=== PATIENT | female | born 1960 | race African-American/Black ===

== ENCOUNTER 2017-07-25 16:50 | Inpatient (IN) | payer MEDICARE, OTHER ==
[~2017-07-25] VITALS: Ht 160 cm; Wt 136.0 kg
[2017-07-25 22:20] LABS: Basophils # (auto) 0 uL; Basophils % (auto) 0.4 % (0.0-2.0); Eosinophils # (auto) 0.2 uL; Eosinophils % (auto) 2.5 % (0.0-7.0); Hematocrit 35.4 % (36.0-46.0); Hemoglobin 11.5 g/dL (12.2-16.2); Lymphocytes # (auto) 1.2 uL; Lymphocytes % (auto) 16.6 % (10.0-50.0); Mean Corpuscular Hemoglobin 31.3 pg (28.0-32.0); Mean Corpuscular Hgb Conc. 32.6 g/dL (32.0-36.0); Mean Corpuscular Volume 96.2 fL (80.0-100.0); Monocytes # (auto) 0.6 uL; Monocytes % (auto) 8.2 % (0.0-12.0); Neutrophils # (auto) 5.2 uL; Neutrophils % (auto) 72.3 % (37.0-80.0); Platelet Count (auto) 166 10^3/uL (140-450); Red Blood Cells 3.68 10^6/uL (4.0-5.20); Red Cell Distribution Width 15.4 % (11.8-14.3); White Blood Cell 7.2 10^3/uL (4.4-10.8)
[2017-07-25 22:46] LABS: Albumin 3.7 g/dL (3.4-5.0); BUN/Creatinine Ratio 5.8; Bilirubin, Total 0.2 mg/dL (0.2-1.0); Total Protein 8.7 g/dL (6.4-8.2)
[2017-07-26] VITALS (7 sets, daily range): BP systolic 96–135; BP diastolic 44–81
[2017-07-26] MEDS ORDERED: CALCIUM GLUC 4.65meq/50ml D5AE 50 ML IV ONE
[2017-07-26] MEDS ORDERED: SODIUM BICARBONATE 8.4 % INJ 50ML VIAL IV ONE
[2017-07-26] MEDS ORDERED: DEXTROSE (50%) 50ML SYRG IV ONE
[2017-07-26] MEDS ORDERED: SODIUM POLYSTYRENE SULF 15GM/60ML SUSP PO ONE
[2017-07-26] MEDS ORDERED: InsuLIN REG 1unit/0.01ml Soln (100units/ml) IV ONE
[2017-07-26] MEDS ORDERED: ACETAMINOPHEN 325 MG TAB PO PRN (02:15)
[2017-07-26] MEDS ORDERED: TEMAZEPAM 15 MG CAP PO PRN (02:15)
[2017-07-26] MEDS ORDERED: ONDANSETRON HCL 4 MG/2 ML VIAL IV PRN (02:15)
[2017-07-26] MEDS ORDERED: NITROGLYCERIN 0.4 MG SL TAB SL PRN (02:15)
[2017-07-26] MEDS ORDERED: cloNIDine HCL 0.1 MG TAB PO PRN (02:15)
[2017-07-26] MEDS ORDERED: DEXTROSE (50%) 50ML SYRG IV PRN (02:15)
[2017-07-26] MEDS ORDERED: MORPHINE SULFATE 8mg/ml INJ SDV IV PRN (02:15)
[2017-07-26] MEDS: HYDROcodone-ACET 5/325MG TAB PO PRN (05:25)
[2017-07-26] MEDS: InsuLIN REG 1unit/0.01ml Soln (100units/ml) SC SCH ×3 (05:30→18:00)
[2017-07-26] MEDS: ACCU-CHEK COMFORT CURVE STRIP VI SCH ×3 (05:30→19:38)
[2017-07-26] MEDS ORDERED: CEPH500C PO (05:58)
[2017-07-26] MEDS: HEPARIN SODIUM (PORCINE) 5000 UNITS/ML 1ML VIAL SC SCH ×2 (10:03→21:14)
[2017-07-26] MEDS: PANTOPRAZOLE 40 MG TAB PO SCH (10:03)
[2017-07-26] MEDS ORDERED: SODIUM CHL 0.9% 1000 ML BAG XX ONE (14:15)
[2017-07-26] MEDS ORDERED: ERGOCALCIFEROL 50,000 UNIT(1.25MG) CAP PO SCH (15:00)
[2017-07-27] MEDS: ACCU-CHEK COMFORT CURVE STRIP VI SCH ×2 (00:12→06:07)
[2017-07-27 05:48] VITALS: BP 89/49
[2017-07-27] MEDS: InsuLIN REG 1unit/0.01ml Soln (100units/ml) SC SCH ×2 (06:00)
[2017-07-27 07:48] LABS: Basophils # (auto) 0 uL; Basophils % (auto) 0.5 % (0.0-2.0); Eosinophils # (auto) 0.1 uL; Eosinophils % (auto) 2.1 % (0.0-7.0); Hematocrit 29.6 % (36.0-46.0); Hemoglobin 9.5 g/dL (12.2-16.2); Lymphocytes # (auto) 0.8 uL; Lymphocytes % (auto) 20.8 % (10.0-50.0); Mean Corpuscular Hemoglobin 31.3 pg (28.0-32.0); Mean Corpuscular Hgb Conc. 32.2 g/dL (32.0-36.0); Mean Corpuscular Volume 97.3 fL (80.0-100.0); Monocytes # (auto) 0.3 uL; Monocytes % (auto) 8.9 % (0.0-12.0); Neutrophils # (auto) 2.5 uL; Neutrophils % (auto) 67.7 % (37.0-80.0); Platelet Count (auto) 123 10^3/uL (140-450); Red Blood Cells 3.04 10^6/uL (4.0-5.20); Red Cell Distribution Width 15.3 % (11.8-14.3); White Blood Cell 3.7 10^3/uL (4.4-10.8)
[2017-07-27 08:00] VITALS: BP 91/54
[2017-07-27 08:11] LABS: Albumin 2.6 g/dL (3.4-5.0); BUN/Creatinine Ratio 5.4; Bilirubin, Total 0.2 mg/dL (0.2-1.0); Calcium 9.1 mg/dL (8.5-10.1); Total Protein 6.3 g/dL (6.4-8.2)
[2017-07-27] MEDS: PANTOPRAZOLE 40 MG TAB PO SCH (10:51)
[2017-07-27] MEDS: MULTIPLE VITAMIN TAB PO SCH (10:51)
[2017-07-27] MEDS: HEPARIN SODIUM (PORCINE) 5000 UNITS/ML 1ML VIAL SC SCH ×2 (10:52→22:00)
[2017-07-27] MEDS ORDERED: MIDODRINE HCL 10 MG TAB PO ONE (11:00)
[2017-07-27 11:44] LABS: Hepatitis B Surface Antibody Negative
[2017-07-27 12:00] VITALS: BP 107/59
[2017-07-27] MEDS: SEVELAMER 800 MG TAB PO SCH ×2 (12:19→17:32)
[2017-07-27 12:51] LABS: Hepatitis B Surface Antigen Negative (Negative)
[2017-07-27 17:00] VITALS: BP 113/61
[2017-07-27 20:07] VITALS: BP 121/71
[2017-07-27 22:00] VITALS: BP 121/71
[2017-07-28 05:00] VITALS: BP 128/70
[2017-07-28 07:08] LABS: BUN/Creatinine Ratio 5.7
[2017-07-28] MEDS: SEVELAMER 800 MG TAB PO SCH ×3 (08:28→18:08)
[2017-07-28 09:00] VITALS: BP 110/64
[2017-07-28] MEDS: PANTOPRAZOLE 40 MG TAB PO SCH (09:34)
[2017-07-28] MEDS: MULTIPLE VITAMIN TAB PO SCH (09:34)
[2017-07-28] MEDS: HEPARIN SODIUM (PORCINE) 5000 UNITS/ML 1ML VIAL SC SCH ×2 (09:37→22:30)
[2017-07-28 13:00] VITALS: BP 119/64
[2017-07-28 17:00] VITALS: BP 114/69
[2017-07-28] MEDS: HYDROcodone-ACET 5/325MG TAB PO PRN (18:20)
[2017-07-28 22:00] VITALS: BP 126/68
[2017-07-29] VITALS (7 sets, daily range): BP systolic 107–132; BP diastolic 48–94
[2017-07-29] MEDS: SEVELAMER 800 MG TAB PO SCH ×3 (07:55→18:00)
[2017-07-29] MEDS: MULTIPLE VITAMIN TAB PO SCH (10:07)
[2017-07-29] MEDS: PANTOPRAZOLE 40 MG TAB PO SCH (10:07)
[2017-07-29] MEDS: HEPARIN SODIUM (PORCINE) 5000 UNITS/ML 1ML VIAL SC SCH ×2 (10:13→21:15)
[2017-07-29] MEDS ORDERED: EPOETIN ALFA 10,000 UNIT/1 ML VIAL IV ONE (12:45)
[2017-07-30 05:29] VITALS: BP 123/70
[2017-07-30 08:00] VITALS: BP 126/87
[2017-07-30 09:00] VITALS: BP 63/28
[2017-07-30] MEDS: MULTIPLE VITAMIN TAB PO SCH (10:10)
[2017-07-30] MEDS: SEVELAMER 800 MG TAB PO SCH ×3 (10:10→18:00)
[2017-07-30] MEDS: PANTOPRAZOLE 40 MG TAB PO SCH (10:10)
[2017-07-30] MEDS: HEPARIN SODIUM (PORCINE) 5000 UNITS/ML 1ML VIAL SC SCH (10:15)
[2017-07-30 13:00] VITALS: BP 125/75
[2017-07-30 17:46] VITALS: BP 140/70
== END 2017-07-30 18:45 | disposition home health service (06) | DRG 640 ==
LOC: ER 16:50 → EDBD 16:50 → TELE-CENTR 16:51
PROVIDERS: ADMIT Nurse Practitioner; ATTEND Family Medicine
PROC: 5A1D70Z Performance of Urinary Filtration, Intermittent, Less than 6 Hours Per Day (ICD-10-PCS; principal; 2017-07-26)
PROC: 5A1D70Z Performance of Urinary Filtration, Intermittent, Less than 6 Hours Per Day (ICD-10-PCS; 2017-07-27)
PROC: 5A1D70Z Performance of Urinary Filtration, Intermittent, Less than 6 Hours Per Day (ICD-10-PCS; 2017-07-29)
DX: E87.70 Fluid overload, unspecified (principal); N18.6 End stage renal disease; I13.2 Hypertensive heart and chronic kidney disease with heart failure and with stage 5 chronic kidney disease, or end stage renal disease; N17.9 Acute kidney failure, unspecified; E11.22 Type 2 diabetes mellitus with diabetic chronic kidney disease; B19.10 Unspecified viral hepatitis B without hepatic coma; E66.01 Morbid (severe) obesity due to excess calories; E83.39 Other disorders of phosphorus metabolism; Z68.43 Body mass index [BMI] 50.0-59.9, adult; K76.0 Fatty (change of) liver, not elsewhere classified; D63.8 Anemia in other chronic diseases classified elsewhere; E87.5 Hyperkalemia; I50.9 Heart failure, unspecified; J44.9 Chronic obstructive pulmonary disease, unspecified; Z91.15 Patient's noncompliance with renal dialysis; Z99.2 Dependence on renal dialysis
CPT/HCPCS: 36415; 71045; 80048; 80053; 82962; 84100; 84132; 85025; 86706; 87081; 87340; 90935; 96374; 96375; J0610; J0885; J1642; J1815

== ENCOUNTER → 2017-08-18 | Outpatient (CLI) | payer MEDICARE, OTHER ==
[~2017-08-18] MED LIST: CEPH500C PO
[2017-08-18 10:21] LABS: Basophils # (auto) 0 uL; Basophils % (auto) 0.6 % (0.0-2.0); Eosinophils # (auto) 0.1 uL; Eosinophils % (auto) 1.7 % (0.0-7.0); Hematocrit 32.4 % (36.0-46.0); Hemoglobin 10.4 g/dL (12.2-16.2); Lymphocytes # (auto) 1.1 uL; Lymphocytes % (auto) 14.7 % (10.0-50.0); Mean Corpuscular Hemoglobin 31.4 pg (28.0-32.0); Mean Corpuscular Hgb Conc. 32.2 g/dL (32.0-36.0); Mean Corpuscular Volume 97.7 fL (80.0-100.0); Monocytes # (auto) 0.4 uL; Monocytes % (auto) 5.9 % (0.0-12.0); Neutrophils # (auto) 5.6 uL; Neutrophils % (auto) 77.1 % (37.0-80.0); Nucleated Red Blood Cells % 0.1 %; Platelet Count (auto) 241 10^3/uL (140-450); Red Blood Cells 3.32 10^6/uL (4.0-5.20); Red Cell Distribution Width 14.9 % (11.8-14.3); White Blood Cell 7.2 10^3/uL (4.4-10.8)
[2017-08-18 10:50] LABS: Albumin 3.6 g/dL (3.4-5.0); BUN/Creatinine Ratio 7.5; Bilirubin, Total 0.2 mg/dL (0.2-1.0); Calcium 10.3 mg/dL (8.5-10.1); Total Protein 8.6 g/dL (6.4-8.2)
[2017-08-18 10:56] LABS: Potassium 5.6 mmol/L (3.5-5.1)
== END | disposition home or self-care (01) ==
LOC: LAB 09:25
PROVIDERS: ATTEND Nurse Practitioner
DX: E78.5 Hyperlipidemia, unspecified (principal); I12.0 Hypertensive chronic kidney disease with stage 5 chronic kidney disease or end stage renal disease; E11.22 Type 2 diabetes mellitus with diabetic chronic kidney disease; N18.6 End stage renal disease
CPT/HCPCS: 36415; 80053; 80061; 82306; 83036; 84443; 85025

== ENCOUNTER 2017-08-31 02:42 | Inpatient (IN) | payer MEDICARE, OTHER ==
[~2017-08-31] VITALS: Ht 175.3 cm; Wt 144.8 kg
[2017-08-31] MEDS ORDERED: ASPirin 81 mg TAB PO ONE (04:15)
[2017-08-31 04:44] LABS: Basophils # (auto) 0 uL; Basophils % (auto) 0.4 % (0.0-2.0); Eosinophils # (auto) 0.1 uL; Eosinophils % (auto) 1.7 % (0.0-7.0); Hematocrit 26.9 % (36.0-46.0); Lymphocytes % (auto) 13.8 % (10.0-50.0); Mean Corpuscular Hemoglobin 32.1 pg (28.0-32.0); Mean Corpuscular Hgb Conc. 33.4 g/dL (32.0-36.0); Mean Corpuscular Volume 96.1 fL (80.0-100.0); Monocytes # (auto) 0.6 uL; Neutrophils # (auto) 5.2 uL; Neutrophils % (auto) 75.1 % (37.0-80.0); Platelet Count (auto) 174 10^3/uL (140-450); Red Cell Distribution Width 14.7 % (11.8-14.3); White Blood Cell 6.9 10^3/uL (4.4-10.8)
[2017-08-31 05:10] LABS: INR 0.96 (0.9-1.15); Partial Thromboplastin Time 27.8 sec (23.78-33.04); Prothrombin Time 10.3 sec (9.27-12.13)
[2017-08-31 05:57] LABS: Alkaline Phosphatase 226 U/L (45-117); Anion Gap 11 (5-15); BUN/Creatinine Ratio 7.2; Carbon Dioxide 26 mmol/L (21-32); Chloride 102 mmol/L (98-107); GFR African American 4 mL/min; GFR Non-African American 3 mL/min; Glucose 94 mg/dL (74-106); Potassium 5.9 mmol/L (3.5-5.1); Sodium 139 mmol/L (136-145)
[2017-08-31 05:58] LABS: Alanine Aminotransferase 13 U/L (13-56); Albumin 3.1 g/dL (3.4-5.0); Aspartate Aminotransferase 8 U/L (15-37); Bilirubin, Total 0.2 mg/dL (0.2-1.0); Calcium 9.1 mg/dL (8.5-10.1); Total Protein 7.2 g/dL (6.4-8.2)
[2017-08-31 06:00] LABS: Blood Urea Nitrogen 91 mg/dL (7-18)
[2017-08-31] MEDS ORDERED: DOCUSATE SOD 100 MG CAP PO PRN (09:00)
[2017-08-31] MEDS ORDERED: MORPHINE SULF INJ 2 MG/ML SYRINGE 1ML IV PRN (09:00)
[2017-08-31] MEDS ORDERED: TEMAZEPAM 15 MG CAP PO PRN (09:00)
[2017-08-31] MEDS ORDERED: DEXTROSE (50%) 50ML SYRG IV ONE (09:00)
[2017-08-31] MEDS ORDERED: SODIUM POLYSTYRENE SULF 15GM/60ML SUSP PO ONE (09:00)
[2017-08-31] MEDS ORDERED: cloNIDine HCL 0.1 MG TAB PO PRN (09:00)
[2017-08-31] MEDS ORDERED: SODIUM BICARBONATE 8.4 % INJ 50ML VIAL IV ONE (09:00)
[2017-08-31] MEDS ORDERED: ONDANSETRON HCL 4 MG/2 ML VIAL IV PRN (09:00)
[2017-08-31] MEDS ORDERED: NITROGLYCERIN 0.4 MG SL TAB SL PRN (09:00)
[2017-08-31] MEDS ORDERED: CALCIUM GLUC 4.65meq/50ml D5AE 50 ML IV ONE (09:00)
[2017-08-31] MEDS ORDERED: ACETAMINOPHEN 325 MG TAB PO PRN (09:00)
[2017-08-31] MEDS ORDERED: InsuLIN REG 1unit/0.01ml Soln (100units/ml) IV ONE (09:00)
[2017-08-31 09:11] VITALS: BP 104/54
[2017-08-31] MEDS ORDERED: DEXTROSE (50%) 50ML SYRG IV PRN (09:30)
[2017-08-31] MEDS: MULTIPLE VITAMIN TAB PO SCH (09:56)
[2017-08-31] MEDS: ACCU-CHEK COMFORT CURVE STRIP VI SCH ×3 (11:52→22:00)
[2017-08-31] MEDS: SEVELAMER 800 MG TAB PO SCH ×2 (11:53→18:00)
[2017-08-31] MEDS ORDERED: Ensure Enlive Strawberry 8oz Bottle PO SCH (12:00)
[2017-08-31] MEDS: InsuLIN REG 1unit/0.01ml Soln (100units/ml) SC SCH ×3 (12:00→22:00)
[2017-08-31] MEDS: ALBUTEROL SULF 2.5 MG/0.5ML(0.5%) NEB SOLN NEB SCH ×2 (12:05→19:01)
[2017-08-31] MEDS: Glucerna Carbsteady SHAKE Vanilla 8oz PO SCH ×2 (12:30→19:08)
[2017-08-31] MEDS: cloNIDine HCL 0.1 MG TAB PO SCH ×2 (14:00→21:43)
[2017-08-31] MEDS: SODIUM CHLOR 0.9% PF (SALINE LOCK) 10ML VIAL/SYR IV SCH ×2 (15:38→22:00)
[2017-08-31] MEDS ORDERED: ALBU1AER4 IN (16:26)
[2017-08-31] MEDS ORDERED: CLON0.2D6 TD (16:26)
[2017-08-31] MEDS ORDERED: SEVE800T8 PO (16:26)
[2017-08-31] MEDS ORDERED: HYDR-4683 PO (16:26)
[2017-08-31] MEDS ORDERED: EPOETIN ALFA 3,000 UNIT/1 ML VIAL IV ONE (18:00)
[2017-08-31] MEDS ORDERED: EPOETIN ALFA 2,000 UNIT/1 ML VIAL IV ONE (18:00)
[2017-08-31] MEDS ORDERED: SODIUM CHL 0.9% 1000 ML BAG XX ONE (18:00)
[2017-08-31 21:13] VITALS: BP 145/76
[2017-08-31] MEDS: diphenhdrAMINE HCL 25 MG CAP PO PRN (21:42)
[2017-08-31] MEDS: HYDROcodone-ACET 5/325MG TAB PO PRN (21:43)
[2017-08-31 22:00] VITALS: BP 139/72
[2017-08-31 22:44] LABS: Urine Amorphous Crystal FEW /hpf (None Seen); Urine Bacteria MANY /hpf (None Seen); Urine Blood 1+ /uL (Negative); Urine Specific Gravity 1.008 (1.001-1.035); Urine WBC 8 /hpf (0 - 5)
[2017-09-01] MEDS: ALBUTEROL SULF 2.5 MG/0.5ML(0.5%) NEB SOLN NEB SCH ×4 (00:39→18:00)
[2017-09-01 05:00] VITALS: BP 111/61
[2017-09-01] MEDS: SODIUM CHLOR 0.9% PF (SALINE LOCK) 10ML VIAL/SYR IV SCH ×3 (05:51→14:50)
[2017-09-01] MEDS: ACCU-CHEK COMFORT CURVE STRIP VI SCH ×4 (05:52→21:57)
[2017-09-01] MEDS: cloNIDine HCL 0.1 MG TAB PO SCH ×3 (05:52→21:43)
[2017-09-01] MEDS: InsuLIN REG 1unit/0.01ml Soln (100units/ml) SC SCH ×4 (06:13→21:58)
[2017-09-01 07:52] LABS: Basophils # (auto) 0 uL; Eosinophils # (auto) 0.1 uL; Hematocrit 23.5 % (36.0-46.0); Lymphocytes # (auto) 0.8 uL; Monocytes # (auto) 0.5 uL; Neutrophils # (auto) 3.1 uL; White Blood Cell 4.5 10^3/uL (4.4-10.8)
[2017-09-01 07:54] LABS: Basophils % (auto) 0.3 % (0.0-2.0); Eosinophils % (auto) 2.5 % (0.0-7.0); Lymphocytes % (auto) 16.9 % (10.0-50.0); Mean Corpuscular Hemoglobin 30.9 pg (28.0-32.0); Mean Corpuscular Hgb Conc. 32.3 g/dL (32.0-36.0); Mean Corpuscular Volume 95.7 fL (80.0-100.0); Monocytes % (auto) 11.5 % (0.0-12.0); Neutrophils % (auto) 68.8 % (37.0-80.0); Red Cell Distribution Width 14.4 % (11.8-14.3)
[2017-09-01 07:57] LABS: Hemoglobin 7.7 g/dL (12.2-16.2); Platelet Count (auto) 141 10^3/uL (140-450); Red Blood Cells 2.46 10^6/uL (4.0-5.20)
[2017-09-01] MEDS: Glucerna Carbsteady SHAKE Vanilla 8oz PO SCH ×3 (07:58→17:16)
[2017-09-01 08:01] VITALS: BP 100/59
[2017-09-01 08:24] LABS: Albumin 2.5 g/dL (3.4-5.0); Bilirubin, Total 0.4 mg/dL (0.2-1.0); Total Protein 6.2 g/dL (6.4-8.2)
[2017-09-01 08:48] VITALS: BP 100/59
[2017-09-01] MEDS: MULTIPLE VITAMIN TAB PO SCH (08:48)
[2017-09-01] MEDS: SEVELAMER 800 MG TAB PO SCH ×3 (08:48→18:00)
[2017-09-01] MEDS: HYDROcodone-ACET 5/325MG TAB PO PRN ×3 (08:48→21:44)
[2017-09-01] MEDS ORDERED: EPOETIN ALFA 3,000 UNIT/1 ML VIAL IV ONE (11:30)
[2017-09-01] MEDS ORDERED: EPOETIN ALFA 2,000 UNIT/1 ML VIAL IV ONE (11:30)
[2017-09-01 12:06] VITALS: BP 118/73
[2017-09-01] MEDS: ENOXAPARIN SOD 30 MG/0.3 ML SYRINGE SC SCH (14:51)
[2017-09-01 16:50] VITALS: BP 116/63
[2017-09-01] MEDS: diphenhdrAMINE HCL 25 MG CAP PO PRN (21:44)
[2017-09-01 22:00] VITALS: BP 124/66
[2017-09-02] MEDS: ALBUTEROL SULF 2.5 MG/0.5ML(0.5%) NEB SOLN NEB SCH ×3 (00:41→11:05)
[2017-09-02 05:00] VITALS: BP 111/60
[2017-09-02] MEDS: SODIUM CHLOR 0.9% PF (SALINE LOCK) 10ML VIAL/SYR IV SCH (05:45)
[2017-09-02] MEDS: cloNIDine HCL 0.1 MG TAB PO SCH (06:31)
[2017-09-02] MEDS: ACCU-CHEK COMFORT CURVE STRIP VI SCH ×2 (06:50→11:30)
[2017-09-02] MEDS: InsuLIN REG 1unit/0.01ml Soln (100units/ml) SC SCH ×2 (06:55→11:30)
[2017-09-02] MEDS: Glucerna Carbsteady SHAKE Vanilla 8oz PO SCH ×2 (08:00→12:00)
[2017-09-02] MEDS: SEVELAMER 800 MG TAB PO SCH ×2 (08:42→12:57)
[2017-09-02 08:46] VITALS: BP 119/67
[2017-09-02] MEDS ORDERED: ENOXAPARIN SOD 40 MG/0.4 ML SYRINGE SC SCH (10:00)
[2017-09-02 12:56] VITALS: BP 126/71
[2017-09-02] MEDS: ENOXAPARIN SOD 30 MG/0.3 ML SYRINGE SC SCH (12:56)
[2017-09-02] MEDS: MULTIPLE VITAMIN TAB PO SCH (12:56)
[2017-09-02 14:32] VITALS: BP 119/67
== END 2017-09-02 15:15 | disposition home or self-care (01) | DRG 291 ==
LOC: EDBD 02:42 → ER 02:48 → TELE 02:49 → TELE-CENTR 10:57
PROVIDERS: ADMIT Internal Medicine; ATTEND Family Medicine
PROC: 5A1D70Z Performance of Urinary Filtration, Intermittent, Less than 6 Hours Per Day (ICD-10-PCS; 2017-08-31)
PROC: 5A1D70Z Performance of Urinary Filtration, Intermittent, Less than 6 Hours Per Day (ICD-10-PCS; principal; 2017-09-01)
DX: I13.2 Hypertensive heart and chronic kidney disease with heart failure and with stage 5 chronic kidney disease, or end stage renal disease (principal); N18.6 End stage renal disease; I50.43 Acute on chronic combined systolic (congestive) and diastolic (congestive) heart failure; E44.0 Moderate protein-calorie malnutrition; Z68.42 Body mass index [BMI] 45.0-49.9, adult; J44.1 Chronic obstructive pulmonary disease with (acute) exacerbation; N04.9 Nephrotic syndrome with unspecified morphologic changes; E87.5 Hyperkalemia; E83.41 Hypermagnesemia; D63.8 Anemia in other chronic diseases classified elsewhere; E11.22 Type 2 diabetes mellitus with diabetic chronic kidney disease; I08.0 Rheumatic disorders of both mitral and aortic valves; E66.01 Morbid (severe) obesity due to excess calories; I70.0 Atherosclerosis of aorta; R06.03 Acute respiratory distress; Z79.4 Long term (current) use of insulin; Z99.2 Dependence on renal dialysis; Z91.15 Patient's noncompliance with renal dialysis
CPT/HCPCS: 36415; 71045; 80053; 81001; 82962; 83036; 83735; 83880; 84443; 84484; 85025; 85379; 85610; 85730; 90935; 93005; 93306; 93970; 94640; 96365; 96375; 97110; 97163; J0610; J1642; J1815; Q4081

== ENCOUNTER → 2017-09-29 | Outpatient (CLI) | payer MEDICARE, OTHER ==
[~2017-09-29] MED LIST changes: +ALBU1AER4 IN; +CLON0.2D6 TD; +HYDR-4683 PO; +SEVE800T8 PO
== END | disposition home or self-care (01) ==
LOC: LAB 09:52
PROVIDERS: ATTEND Nurse Practitioner
DX: R10.811 Right upper quadrant abdominal tenderness (principal); I12.9 Hypertensive chronic kidney disease with stage 1 through stage 4 chronic kidney disease, or unspecified chronic kidney disease; E11.22 Type 2 diabetes mellitus with diabetic chronic kidney disease; N18.4 Chronic kidney disease, stage 4 (severe); Z82.61 Family history of arthritis
CPT/HCPCS: 86225; 86235

== ENCOUNTER 2017-10-12 16:17 | Inpatient (IN) | payer MEDICARE, OTHER ==
[~2017-10-12] VITALS: Ht 175.3 cm; Wt 128.9 kg
[2017-10-12 18:41] LABS: Basophils # (auto) 0 uL; Hemoglobin 8.4 g/dL (12.2-16.2); Lymphocytes # (auto) 1.4 uL; White Blood Cell 5.7 10^3/uL (4.4-10.8)
[2017-10-12 18:48] LABS: Basophils % (auto) 0.4 % (0.0-2.0); Eosinophils # (auto) 0.3 uL; Hematocrit 25.6 % (36.0-46.0); Lymphocytes % (auto) 23.8 % (10.0-50.0); Mean Corpuscular Hemoglobin 31.7 pg (28.0-32.0); Mean Corpuscular Hgb Conc. 32.9 g/dL (32.0-36.0); Mean Corpuscular Volume 96.5 fL (80.0-100.0); Monocytes # (auto) 0.6 uL; Monocytes % (auto) 10.7 % (0.0-12.0); Neutrophils # (auto) 3.4 uL; Neutrophils % (auto) 60.1 % (37.0-80.0); Platelet Count (auto) 175 10^3/uL (140-450); Red Blood Cells 2.65 10^6/uL (4.0-5.20); Red Cell Distribution Width 14.9 % (11.8-14.3)
[2017-10-12 19:00] LABS: Alanine Aminotransferase 19 U/L (13-56); Albumin 3.3 g/dL (3.4-5.0); Anion Gap 12 (5-15); Calcium 8.9 mg/dL (8.5-10.1); Carbon Dioxide 26 mmol/L (21-32); Chloride 99 mmol/L (98-107); Glucose 67 mg/dL (74-106); Sodium 137 mmol/L (136-145)
[2017-10-12 19:07] LABS: Alkaline Phosphatase 270 U/L (45-117); Aspartate Aminotransferase 13 U/L (15-37); BUN/Creatinine Ratio 5.9; Bilirubin, Total 0.3 mg/dL (0.2-1.0); GFR African American 4 mL/min; GFR Non-African American 3 mL/min; Total Protein 7.6 g/dL (6.4-8.2)
[2017-10-12 19:11] LABS: Blood Urea Nitrogen 81 mg/dL (7-18); Potassium 6.9 mmol/L (3.5-5.1)
[2017-10-12] MEDS ORDERED: SODIUM POLYSTYRENE SULF 15GM/60ML SUSP PO ONE (20:30)
[2017-10-12] MEDS ORDERED: SODIUM BICARBONATE 8.4 % INJ 50ML VIAL IV ONE (20:30)
[2017-10-12] MEDS ORDERED: InsuLIN REG 1unit/0.01ml Soln (100units/ml) IV ONE (20:30)
[2017-10-12] MEDS ORDERED: HYDROcodone-ACET 5/325MG TAB PO ONE (20:30)
[2017-10-12] MEDS ORDERED: DEXTROSE (50%) 50ML SYRG IV ONE (20:30)
[2017-10-12] MEDS ORDERED: CALCIUM GLUC 4.65meq/50ml D5AE 50 ML IV ONE (20:30)
[2017-10-12] MEDS ORDERED: ACETAMINOPHEN 500 MG TAB PO PRN (21:30)
[2017-10-12] MEDS ORDERED: NITROGLYCERIN 0.4 MG SL TAB SL PRN (21:30)
[2017-10-12] MEDS ORDERED: MORPHINE SULF INJ 2 MG/ML SYRINGE 1ML IV PRN (21:30)
[2017-10-12] MEDS ORDERED: ONDANSETRON HCL 4 MG/2 ML VIAL IV PRN (21:30)
[2017-10-12] MEDS ORDERED: ALBUTEROL SULF 2.5 MG/0.5ML(0.5%) NEB SOLN NEB PRN (21:30)
[2017-10-12 22:21] VITALS: BP 128/68
[2017-10-12] MEDS ORDERED: PROMETHAZINE HCL 25 MG/ML 1ML ONE (23:10)
[2017-10-12] MEDS ORDERED: HYDROmorphone HCL 2 MG/ML VL ONE (23:10)
[2017-10-12] MEDS ORDERED: HYDROmorphone HCL 2 MG/ML VL IV ONE (23:15)
[2017-10-12] MEDS ORDERED: PROMETHAZINE HCL 25 MG/ML 1ML IM ONE (23:15)
[2017-10-13] VITALS (8 sets, daily range): BP systolic 97–132; BP diastolic 55–73
[2017-10-13] MEDS: cloNIDine HCL 0.1 MG TAB PO SCH ×3 (05:30→21:03)
[2017-10-13] MEDS: SEVELAMER 800 MG TAB PO SCH ×3 (08:00→18:16)
[2017-10-13 08:22] LABS: BUN/Creatinine Ratio 5.9; Calcium 8.9 mg/dL (8.5-10.1)
[2017-10-13 08:30] LABS: Potassium 7.3 mmol/L (3.5-5.1)
[2017-10-13] MEDS ORDERED: ALBUTEROL SULF 2.5 MG/0.5ML(0.5%) NEB SOLN NEB ONE (08:45)
[2017-10-13] MEDS ORDERED: InsuLIN REG 1unit/0.01ml Soln (100units/ml) IV ONE (08:45)
[2017-10-13] MEDS ORDERED: DEXTROSE (50%) 50ML SYRG IV ONE (08:45)
[2017-10-13] MEDS ORDERED: EPOETIN ALFA 10,000 UNIT/1 ML VIAL IV ONE (10:15)
[2017-10-13] MEDS ORDERED: SODIUM CHL 0.9% 1000 ML BAG XX ONE (10:15)
[2017-10-13] MEDS ORDERED: MIDODRINE HCL 10 MG TAB PO ONE (10:15)
[2017-10-13 14:21] LABS: Hemoglobin 7.9 g/dL (12.2-16.2); Lymphocytes # (auto) 0.9 uL; Lymphocytes % (auto) 18.4 % (10.0-50.0); Monocytes # (auto) 0.5 uL; Neutrophils # (auto) 3.4 uL; Nucleated Red Blood Cells % 0.1 %; Red Cell Distribution Width 14.7 % (11.8-14.3)
[2017-10-13 14:22] LABS: Basophils # (auto) 0.1 uL; Basophils % (auto) 1.1 % (0.0-2.0); Eosinophils # (auto) 0.2 uL; Eosinophils % (auto) 3.2 % (0.0-7.0); Hematocrit 24.1 % (36.0-46.0); Mean Corpuscular Hemoglobin 31.2 pg (28.0-32.0); Mean Corpuscular Hgb Conc. 32.6 g/dL (32.0-36.0); Monocytes % (auto) 9.3 % (0.0-12.0); Platelet Count (auto) 166 10^3/uL (140-450); Red Blood Cells 2.51 10^6/uL (4.0-5.20); White Blood Cell 4.9 10^3/uL (4.4-10.8)
[2017-10-13] MEDS: HYDROcodone-ACET 5/325MG TAB PO PRN (21:03)
[2017-10-14 04:32] VITALS: BP 119/60
[2017-10-14] MEDS: cloNIDine HCL 0.1 MG TAB PO SCH ×3 (05:28→21:36)
[2017-10-14 07:45] LABS: Basophils # (auto) 0 uL; Eosinophils # (auto) 0.2 uL; Eosinophils % (auto) 4.6 % (0.0-7.0); Hemoglobin 8.4 g/dL (12.2-16.2); Monocytes # (auto) 0.5 uL; Neutrophils # (auto) 3.2 uL; White Blood Cell 4.7 10^3/uL (4.4-10.8)
[2017-10-14 07:47] LABS: Basophils % (auto) 0.5 % (0.0-2.0); Hematocrit 25.5 % (36.0-46.0); Lymphocytes # (auto) 0.8 uL; Lymphocytes % (auto) 16.2 % (10.0-50.0); Mean Corpuscular Hemoglobin 31.7 pg (28.0-32.0); Mean Corpuscular Hgb Conc. 32.9 g/dL (32.0-36.0); Mean Corpuscular Volume 96.2 fL (80.0-100.0); Monocytes % (auto) 10.5 % (0.0-12.0); Neutrophils % (auto) 68.2 % (37.0-80.0); Platelet Count (auto) 157 10^3/uL (140-450); Red Blood Cells 2.65 10^6/uL (4.0-5.20)
[2017-10-14 08:00] VITALS: BP 104/52
[2017-10-14] MEDS: SEVELAMER 800 MG TAB PO SCH ×3 (08:00→18:00)
[2017-10-14 08:10] LABS: BUN/Creatinine Ratio 5.3; Calcium 8.7 mg/dL (8.5-10.1); Magnesium 3.1 mg/dL (1.6-2.6)
[2017-10-14 08:14] LABS: Potassium 6.2 mmol/L (3.5-5.1)
[2017-10-14] MEDS ORDERED: SODIUM CHL 0.9% 1000 ML BAG XX ONE (08:30)
[2017-10-14 09:39] VITALS: BP 104/52
[2017-10-14] MEDS ORDERED: ALBUTEROL SULF 2.5 MG/0.5ML(0.5%) NEB SOLN ONE (10:59)
[2017-10-14] MEDS ORDERED: ALBUTEROL SULF 2.5 MG/0.5ML(0.5%) NEB SOLN NEB ONE (11:00)
[2017-10-14] MEDS ORDERED: DEXTROSE (50%) 50ML SYRG IV ONE (11:00)
[2017-10-14] MEDS ORDERED: InsuLIN REG 1unit/0.01ml Soln (100units/ml) IV ONE (11:00)
[2017-10-14 12:30] VITALS: BP 124/66
[2017-10-14 17:23] VITALS: BP 115/56
[2017-10-14] MEDS: HYDROcodone-ACET 5/325MG TAB PO PRN (20:20)
[2017-10-14 21:39] VITALS: BP 130/70
[2017-10-15 05:00] VITALS: BP 116/55
[2017-10-15] MEDS: cloNIDine HCL 0.1 MG TAB PO SCH ×2 (05:43→14:00)
[2017-10-15 07:28] LABS: Hemoglobin 8.4 g/dL (12.2-16.2)
[2017-10-15 07:29] LABS: Hematocrit 25.4 % (36.0-46.0)
[2017-10-15 07:41] LABS: BUN/Creatinine Ratio 4.4; Calcium 9.3 mg/dL (8.5-10.1); Magnesium 2.8 mg/dL (1.6-2.6); Potassium 4.7 mmol/L (3.5-5.1)
[2017-10-15 08:00] VITALS: BP 116/55
[2017-10-15] MEDS: SEVELAMER 800 MG TAB PO SCH ×2 (08:07→12:00)
[2017-10-15 09:05] VITALS: BP 111/58
[2017-10-15 14:28] VITALS: BP 112/59
== END 2017-10-15 14:30 | disposition home health service (06) | DRG 291 ==
LOC: EDBD 16:17 → ER 16:24 → TELE 16:25 → TELE-WESTW 23:40
PROVIDERS: ADMIT Nurse Practitioner Family; ATTEND Internal Medicine
PROC: 5A1D70Z Performance of Urinary Filtration, Intermittent, Less than 6 Hours Per Day (ICD-10-PCS; principal; 2017-10-13)
PROC: 5A1D70Z Performance of Urinary Filtration, Intermittent, Less than 6 Hours Per Day (ICD-10-PCS; 2017-10-14)
DX: I13.2 Hypertensive heart and chronic kidney disease with heart failure and with stage 5 chronic kidney disease, or end stage renal disease (principal); I50.43 Acute on chronic combined systolic (congestive) and diastolic (congestive) heart failure; N18.6 End stage renal disease; Z68.41 Body mass index [BMI] 40.0-44.9, adult; E87.5 Hyperkalemia; D63.8 Anemia in other chronic diseases classified elsewhere; E11.22 Type 2 diabetes mellitus with diabetic chronic kidney disease; E66.01 Morbid (severe) obesity due to excess calories; J44.9 Chronic obstructive pulmonary disease, unspecified; Z82.49 Family history of ischemic heart disease and other diseases of the circulatory system; Z99.2 Dependence on renal dialysis; Z91.15 Patient's noncompliance with renal dialysis; J45.909 Unspecified asthma, uncomplicated
CPT/HCPCS: 36415; 71045; 80048; 80053; 83735; 83880; 84100; 84132; 84484; 85014; 85018; 85025; 87081; 90935; 93005; 94640; 94644; 96374; 96375; J0610; J0885; J1642; J1815

== ENCOUNTER → 2017-11-10 | Outpatient (CLI) | payer MEDICARE, OTHER | END | disposition home or self-care (01) | LOC: RT 08:24 | PROVIDERS: ATTEND Internal Medicine Pulmonary Disease | DX: R06.02 Shortness of breath (principal) | CPT/HCPCS: 94060 ==

== ENCOUNTER 2018-05-05 15:59 | Emergency (ER) | payer MEDICARE, OTHER ==
[~2018-05-05] VITALS: Ht 152.4 cm; Wt 136.1 kg
[2018-05-05 17:06] LABS: Basophils # (auto) 0 uL; Basophils % (auto) 0.4 % (0.0-2.0); Eosinophils # (auto) 0.1 uL; Eosinophils % (auto) 0.8 % (0.0-7.0); Hematocrit 34.1 % (36.0-46.0); Hemoglobin 11.1 g/dL (12.2-16.2); Lymphocytes # (auto) 1.5 uL; Lymphocytes % (auto) 16.1 % (10.0-50.0); Mean Corpuscular Hemoglobin 31.4 pg (28.0-32.0); Mean Corpuscular Hgb Conc. 32.7 g/dL (32.0-36.0); Mean Corpuscular Volume 96.1 fL (80.0-100.0); Monocytes % (auto) 10.3 % (0.0-12.0); Neutrophils # (auto) 6.9 uL; Neutrophils % (auto) 72.4 % (37.0-80.0); Platelet Count (auto) 137 10^3/uL (140-450); Red Blood Cells 3.55 10^6/uL (4.0-5.20); Red Cell Distribution Width 15.1 % (11.8-14.3); White Blood Cell 9.5 10^3/uL (4.4-10.8)
[2018-05-05 17:12] LABS: Anion Gap 7 (5-15); Blood Urea Nitrogen 70 mg/dL (7-18); Calcium 7.2 mg/dL (8.5-10.1); Carbon Dioxide 24 mmol/L (21-32); Chloride 100 mmol/L (98-107); Glucose 94 mg/dL (74-106); INR 0.94 (0.9-1.15); Prothrombin Time 10.1 sec (9.27-12.13); Sodium 131 mmol/L (136-145)
[2018-05-05 17:15] LABS: Alanine Aminotransferase < 6 U/L (13-56); Alkaline Phosphatase 243 U/L (45-117); Aspartate Aminotransferase 11 U/L (15-37); BUN/Creatinine Ratio 7.2; Bilirubin, Total 0.3 mg/dL (0.2-1.0); GFR African American 5 mL/min; GFR Non-African American 4 mL/min
[2018-05-05 17:25] LABS: Potassium 6.3 mmol/L (3.5-5.1)
[2018-05-05] MEDS ORDERED: CALCIUM GLUC 4.65meq/50ml D5AE 50 ML IV ONE (18:15)
[2018-05-05] MEDS ORDERED: DEXTROSE (50%) 50ML SYRG IV ONE (18:15)
[2018-05-05] MEDS ORDERED: InsuLIN REG 1unit/0.01ml Soln (100units/ml) IV ONE (18:15)
[2018-05-06 01:30] VITALS: BP 116/68
== END 2018-05-06 01:44 | disposition short-term general hospital (02) ==
LOC: ER 15:59 → EDUNIT# 15:59 → EDBD 15:59 → ER 05-06 01:44
DX: R22.9 Localized swelling, mass and lump, unspecified (principal); E11.22 Type 2 diabetes mellitus with diabetic chronic kidney disease; I13.2 Hypertensive heart and chronic kidney disease with heart failure and with stage 5 chronic kidney disease, or end stage renal disease; I50.9 Heart failure, unspecified; N18.6 End stage renal disease; D63.1 Anemia in chronic kidney disease; J44.9 Chronic obstructive pulmonary disease, unspecified; E87.5 Hyperkalemia; Z99.2 Dependence on renal dialysis; Z79.4 Long term (current) use of insulin
CPT/HCPCS: 36415; 80053; 83735; 83880; 84132; 84484; 85025; 85610; 85730; 93005; 93971; 94761; 96365; 96375; 99285; J0610; J1815; J7042

== ENCOUNTER 2020-04-13 19:00 | Inpatient (IN) | payer MEDICARE, MEDICAID ==
[~2020-04-13] VITALS: Ht 152.4 cm; Wt 139.4 kg
[~2020-04-13 19:00] MED LIST changes: -HYDR-4683 PO; +HYDR-4833 PO
[2020-04-13] MEDS ORDERED: ONDANSETRON ODT 4 MG TAB PO STA (22:01)
[2020-04-13] MEDS ORDERED: HYDROcodone-ACET 5/325MG TAB PO STA (22:01)
[2020-04-14 00:26] LABS: Basophils # (auto) 0 10 ^3/uL (0-0.2); Eosinophils # (auto) 0 10 ^3/uL (0-0.8); Eosinophils % (auto) 0.2 % (0.0-7.0); Hematocrit 30.8 % (36.0-46.0); Hemoglobin 9.9 g/dL (12.2-16.2); Lymphocytes # (auto) 0.3 10 ^3/uL (0.4-5.4); Lymphocytes % (auto) 4.5 % (10.0-50.0); Mean Corpuscular Hemoglobin 29.8 pg (28.0-32.0); Mean Corpuscular Hgb Conc. 32.1 g/dL (32.0-36.0); Mean Corpuscular Volume 92.8 fL (80.0-100.0); Monocytes # (auto) 0.1 10 ^3/uL (0-1.3); Monocytes % (auto) 0.9 % (0.0-12.0); Neutrophils # (auto) 5.8 10 ^3/uL (1.6-8.6); Neutrophils % (auto) 94.4 % (37.0-80.0); Nucleated Red Blood Cells % 0.1 %; Platelet Count (auto) 152 10^3/uL (140-450); Red Blood Cells 3.32 10^6/uL (4.0-5.20); Red Cell Distribution Width 15.8 % (11.8-14.3); White Blood Cell 6.1 10^3/uL (4.4-10.8)
[2020-04-14 00:38] LABS: Lactic Acid w/Reflex 2.4 mmol/L (0.4-2.0)
[2020-04-14 00:39] LABS: Albumin 3.1 g/dL (3.4-5.0); BUN/Creatinine Ratio 3.2; Calcium 8.8 mg/dL (8.5-10.1); INR 1.03 (0.9-1.15); Partial Thromboplastin Time 28.6 sec (23.0-31.2); Potassium 3.5 mmol/L (3.5-5.1)
[2020-04-14 00:42] LABS: Bilirubin, Total 1.1 mg/dL (0.2-1.0)
[2020-04-14] MEDS ORDERED: PIPERACILLIN-TAZOB 3.375GM 100 ML IV ONE (02:15)
[2020-04-14] MEDS ORDERED: VANCOMYCIN 1GM/250ML 250 ML IV ONE (02:15)
[2020-04-14] MEDS ORDERED: ACETAMINOPHEN 325 MG TAB PO PRN (06:30)
[2020-04-14] MEDS ORDERED: NITROGLYCERIN 0.4 MG SL TAB SL PRN (06:30)
[2020-04-14] MEDS ORDERED: DEXTROSE (50%) 50ML SYRG IV PRN (06:30)
[2020-04-14] MEDS ORDERED: DOCUSATE SOD 100 MG CAP PO PRN (06:30)
[2020-04-14] MEDS: InsuLIN REG 1unit/0.01ml Soln (100units/ml) SC SCH ×4 (07:00→20:30)
[2020-04-14] MEDS: ACCU-CHEK COMFORT CURVE STRIP VI SCH ×4 (07:22→20:29)
[2020-04-14] MEDS ORDERED: PIPERACILLIN-TAZOB 0.75 GM in D5W 5% 50 ML IV SCH (07:30)
[2020-04-14] MEDS: SEVELAMER 800 MG TAB PO SCH ×3 (07:43→18:00)
[2020-04-14] MEDS: FAMOTIDINE (10MG/ML) 2ML VL IV SCH (07:43)
[2020-04-14] MEDS: B-COMPLEX W/ C & FOLIC ACID(NEPHROVITE TAB) PO SCH (07:44)
[2020-04-14] MEDS: ASCORBIC ACID 500 MG TAB PO SCH ×2 (07:44→20:48)
[2020-04-14] MEDS: PIPERACILLIN-TAZOB 2.25GM 50 ML IV SCH ×2 (07:44→20:52)
[2020-04-14] MEDS: ZINC SULFATE 220mg CAP or TAB PO SCH (07:44)
[2020-04-14] MEDS ORDERED: MULTIPLE VITAMIN TAB PO SCH (10:00)
[2020-04-14] MEDS ORDERED: NOREPINEPHRINE 8 MG/250ML KIT 250 ML IV ONE (11:43)
[2020-04-14] MEDS: NOREPINEPHRINE 8 MG/250ML KIT 250 ML IV SCH (12:00)
[2020-04-14] MEDS: HYDROcodone-ACET 5/325MG TAB PO PRN ×2 (12:05→16:59)
[2020-04-14] MEDS ORDERED: diphenhdrAMINE HCL 50 MG/1 ML VL ONE (12:35)
[2020-04-14] MEDS: SODIUM CHLOR 0.9% PF (SALINE LOCK) 10ML VIAL/SYR IV SCH ×2 (13:21→20:29)
[2020-04-14 13:28] LABS: Hematocrit 27.3 % (36.0-46.0); Hemoglobin 8.8 g/dL (12.2-16.2); Mean Corpuscular Hemoglobin 29.9 pg (28.0-32.0); Mean Corpuscular Volume 93.3 fL (80.0-100.0); Platelet Count (auto) 137 10^3/uL (140-450); Red Blood Cells 2.93 10^6/uL (4.0-5.20); Red Cell Distribution Width 15.9 % (11.8-14.3); White Blood Cell 19.5 10^3/uL (4.4-10.8)
[2020-04-14 13:32] LABS: Basophils % (manual) 0 (0.0-2.0); Blast Cells 0; Eosinophils % (manual) 0 (0-7); Promyelocytes % 0; Reactive Lymphocytes 0
[2020-04-14 13:38] LABS: Albumin 2.6 g/dL (3.4-5.0); Calcium 8.2 mg/dL (8.5-10.1); Potassium 4.3 mmol/L (3.5-5.1)
[2020-04-14 13:40] LABS: BUN/Creatinine Ratio 4.2
[2020-04-14 13:42] LABS: Total Protein 6.5 g/dL (6.4-8.2)
[2020-04-14 14:08] LABS: Band Neutrophils % (manual) 21; Lymphocytes % (manual) 3 (10.0-50.0); Metamyelocytes % 2; Monocytes % (manual) 4 (0-12); Myelocytes % 3
[2020-04-14] MEDS ORDERED: PHENYLEPHRINE IV 250 ML IV ONE (18:15)
[2020-04-14] MEDS ORDERED: ONDANSETRON HCL 4 MG/2 ML VIAL ONE (18:38)
[2020-04-14] MEDS: PHENYLEPHRINE IV 250 ML IV SCH (18:52)
[2020-04-14] MEDS ORDERED: SODIUM CHLORIDE 0.9% 1,000 ML IV ONE (19:15)
[2020-04-15] MEDS: PHENYLEPHRINE IV 250 ML IV SCH ×3 (00:34→19:45)
[2020-04-15] MEDS: MORPHINE SULF INJ 2 MG/ML SYRINGE 1ML IV PRN ×2 (01:31→07:48)
[2020-04-15] MEDS: SODIUM CHLOR 0.9% PF (SALINE LOCK) 10ML VIAL/SYR IV SCH ×3 (03:43→22:00)
[2020-04-15] MEDS: HYDROcodone-ACET 5/325MG TAB PO PRN (04:52)
[2020-04-15] MEDS: ONDANSETRON HCL 4 MG/2 ML VIAL IV PRN ×2 (05:15→05:18)
[2020-04-15] MEDS: InsuLIN REG 1unit/0.01ml Soln (100units/ml) SC SCH ×4 (05:19→22:00)
[2020-04-15] MEDS: ACCU-CHEK COMFORT CURVE STRIP VI SCH ×4 (05:19→22:01)
[2020-04-15 07:38] LABS: Albumin 2.4 g/dL (3.4-5.0); Anion Gap 10 (5-15); BUN/Creatinine Ratio 4.9; Blood Urea Nitrogen 32 mg/dL (7-18); Calcium 8.3 mg/dL (8.5-10.1); Carbon Dioxide 26 mmol/L (21-32); Chloride 102 mmol/L (98-107); GFR African American 8 mL/min; GFR Non-African American 7 mL/min; Glucose 84 mg/dL (74-106); Potassium 4.5 mmol/L (3.5-5.1); Sodium 138 mmol/L (136-145)
[2020-04-15 07:43] LABS: Alanine Aminotransferase 42 U/L (13-56); Alkaline Phosphatase 307 U/L (45-117); Aspartate Aminotransferase 58 U/L (15-37); Bilirubin, Total 0.9 mg/dL (0.2-1.0); Total Protein 6.6 g/dL (6.4-8.2)
[2020-04-15 07:58] LABS: Basophils # (auto) 0.1 10 ^3/uL (0-0.2); Basophils % (auto) 0.3 % (0.0-2.0); Eosinophils # (auto) 0 10 ^3/uL (0-0.8); Eosinophils % (auto) 0.2 % (0.0-7.0); Hematocrit 26.9 % (36.0-46.0); Hemoglobin 8.7 g/dL (12.2-16.2); Lymphocytes # (auto) 1.7 10 ^3/uL (0.4-5.4); Lymphocytes % (auto) 7.5 % (10.0-50.0); Mean Corpuscular Hemoglobin 30.1 pg (28.0-32.0); Mean Corpuscular Hgb Conc. 32.4 g/dL (32.0-36.0); Mean Corpuscular Volume 93.2 fL (80.0-100.0); Monocytes # (auto) 2.2 10 ^3/uL (0-1.3); Neutrophils # (auto) 18.3 10 ^3/uL (1.6-8.6); Platelet Count (auto) 155 10^3/uL (140-450); Red Blood Cells 2.89 10^6/uL (4.0-5.20); Red Cell Distribution Width 15.4 % (11.8-14.3); White Blood Cell 22.3 10^3/uL (4.4-10.8)
[2020-04-15] MEDS: SEVELAMER 800 MG TAB PO SCH ×3 (08:45→18:20)
[2020-04-15] MEDS: PIPERACILLIN-TAZOB 2.25GM 50 ML IV SCH ×2 (10:00→22:35)
[2020-04-15] MEDS ORDERED: levoFLOXacin 250MG 50 ML IV SCH (11:45)
[2020-04-15] MEDS: NOREPINEPHRINE 8 MG/250ML KIT 250 ML IV SCH (12:00)
[2020-04-15] MEDS: ZINC SULFATE 220mg CAP or TAB PO SCH (12:42)
[2020-04-15] MEDS: ASCORBIC ACID 500 MG TAB PO SCH ×2 (12:42→22:35)
[2020-04-15] MEDS: B-COMPLEX W/ C & FOLIC ACID(NEPHROVITE TAB) PO SCH (13:03)
[2020-04-16] MEDS: NOREPINEPHRINE 8 MG/250ML KIT 250 ML IV SCH
[2020-04-16] MEDS: PHENYLEPHRINE IV 250 ML IV SCH ×2 (04:05→12:20)
[2020-04-16] MEDS: SODIUM CHLOR 0.9% PF (SALINE LOCK) 10ML VIAL/SYR IV SCH ×3 (04:32→21:16)
[2020-04-16] MEDS: HYDROcodone-ACET 5/325MG TAB PO PRN ×2 (05:09→09:24)
[2020-04-16] MEDS: InsuLIN REG 1unit/0.01ml Soln (100units/ml) SC SCH ×4 (06:49→21:21)
[2020-04-16] MEDS: ACCU-CHEK COMFORT CURVE STRIP VI SCH ×4 (06:49→21:21)
[2020-04-16] MEDS: SEVELAMER 800 MG TAB PO SCH ×3 (08:00→18:00)
[2020-04-16 08:50] LABS: Basophils # (auto) 0.1 10 ^3/uL (0-0.2); Basophils % (auto) 0.3 % (0.0-2.0); Eosinophils # (auto) 0.2 10 ^3/uL (0-0.8); Eosinophils % (auto) 0.7 % (0.0-7.0); Monocytes # (auto) 1.6 10 ^3/uL (0-1.3); Red Cell Distribution Width 15.8 % (11.8-14.3)
[2020-04-16 08:51] LABS: Hematocrit 25.3 % (36.0-46.0); Hemoglobin 8.1 g/dL (12.2-16.2); Lymphocytes # (auto) 2.4 10 ^3/uL (0.4-5.4); Lymphocytes % (auto) 10.5 % (10.0-50.0); Mean Corpuscular Hemoglobin 29.4 pg (28.0-32.0); Mean Corpuscular Hgb Conc. 31.9 g/dL (32.0-36.0); Mean Corpuscular Volume 92.4 fL (80.0-100.0); Monocytes % (auto) 6.7 % (0.0-12.0); Neutrophils % (auto) 81.8 % (37.0-80.0); Platelet Count (auto) 166 10^3/uL (140-450); Red Blood Cells 2.74 10^6/uL (4.0-5.20); White Blood Cell 23.3 10^3/uL (4.4-10.8)
[2020-04-16] MEDS: ZINC SULFATE 220mg CAP or TAB PO SCH (09:03)
[2020-04-16] MEDS: ASCORBIC ACID 500 MG TAB PO SCH ×2 (09:03→21:16)
[2020-04-16] MEDS: FAMOTIDINE (10MG/ML) 2ML VL IV SCH (09:03)
[2020-04-16] MEDS: B-COMPLEX W/ C & FOLIC ACID(NEPHROVITE TAB) PO SCH (09:03)
[2020-04-16 09:05] LABS: Potassium 4.9 mmol/L (3.5-5.1)
[2020-04-16 09:10] LABS: Albumin 2.2 g/dL (3.4-5.0); BUN/Creatinine Ratio 6.1; Bilirubin, Total 0.4 mg/dL (0.2-1.0); Total Protein 6.5 g/dL (6.4-8.2)
[2020-04-16] MEDS: NYSTATIN-TRIAMCINOLONE TOPICAL CRE 15GM TOP SCH ×2 (10:30→21:16)
[2020-04-16] MEDS ORDERED: MICONAZOLE NITRATE 2 % VAGINAL CREAM 45 GM PV ONE (10:45)
[2020-04-16] MEDS ORDERED: SODIUM CHLORIDE 0.9% 750 ML IV ONE (12:30)
[2020-04-16] MEDS ORDERED: PIPERACILLIN-TAZOB 2.25GM 50 ML IV SCH (14:00)
[2020-04-16] MEDS: MEROPENEM 500MG IVPB 50 ML IV SCH (16:26)
[2020-04-17] MEDS: MEROPENEM 500MG IVPB 50 ML IV SCH ×2 (03:00→14:38)
[2020-04-17] MEDS: SODIUM CHLOR 0.9% PF (SALINE LOCK) 10ML VIAL/SYR IV SCH ×3 (06:22→22:00)
[2020-04-17] MEDS: InsuLIN REG 1unit/0.01ml Soln (100units/ml) SC SCH ×4 (06:32→22:00)
[2020-04-17] MEDS: ACCU-CHEK COMFORT CURVE STRIP VI SCH ×4 (06:32→22:00)
[2020-04-17] MEDS ORDERED: SODIUM CHL 0.9% 1000 ML BAG XX ONE (07:00)
[2020-04-17] MEDS: SEVELAMER 800 MG TAB PO SCH ×3 (08:46→18:56)
[2020-04-17] MEDS: ZINC SULFATE 220mg CAP or TAB PO SCH (08:46)
[2020-04-17] MEDS: ASCORBIC ACID 500 MG TAB PO SCH ×2 (08:46→22:00)
[2020-04-17] MEDS: B-COMPLEX W/ C & FOLIC ACID(NEPHROVITE TAB) PO SCH (08:46)
[2020-04-17] MEDS: NYSTATIN-TRIAMCINOLONE TOPICAL CRE 15GM TOP SCH ×2 (10:29→22:00)
[2020-04-17] MEDS: NOREPINEPHRINE 8 MG/250ML KIT 250 ML IV SCH (12:14)
[2020-04-17] MEDS ORDERED: EPOETIN ALFA 10,000 UNIT/1 ML VIAL SC ONE (21:00)
[2020-04-17 23:13] LABS: Basophils # (auto) 0 10 ^3/uL (0-0.2); Eosinophils # (auto) 0.2 10 ^3/uL (0-0.8); Hematocrit 22.9 % (36.0-46.0); Monocytes # (auto) 0.7 10 ^3/uL (0-1.3); Nucleated Red Blood Cells % 0.1 %
[2020-04-17 23:15] LABS: Basophils % (auto) 0.4 % (0.0-2.0); Eosinophils % (auto) 1.9 % (0.0-7.0); Hemoglobin 7.5 g/dL (12.2-16.2); Lymphocytes % (auto) 19.9 % (10.0-50.0); Mean Corpuscular Hemoglobin 29.9 pg (28.0-32.0); Mean Corpuscular Hgb Conc. 32.7 g/dL (32.0-36.0); Mean Corpuscular Volume 91.3 fL (80.0-100.0); Monocytes % (auto) 6.9 % (0.0-12.0); Neutrophils % (auto) 70.9 % (37.0-80.0); Platelet Count (auto) 138 10^3/uL (140-450); Red Blood Cells 2.51 10^6/uL (4.0-5.20); Red Cell Distribution Width 15.8 % (11.8-14.3); White Blood Cell 9.9 10^3/uL (4.4-10.8)
[2020-04-17 23:34] LABS: BUN/Creatinine Ratio 4.8; Calcium 7.7 mg/dL (8.5-10.1); Potassium 4.4 mmol/L (3.5-5.1)
[2020-04-18] VITALS (8 sets, daily range): BP systolic 97–131; BP diastolic 60–83
[2020-04-18] MEDS: MEROPENEM 500MG IVPB 50 ML IV SCH ×2 (03:48→14:30)
[2020-04-18] MEDS: SODIUM CHLOR 0.9% PF (SALINE LOCK) 10ML VIAL/SYR IV SCH ×3 (06:20→21:38)
[2020-04-18] MEDS: ACCU-CHEK COMFORT CURVE STRIP VI SCH ×4 (06:20→21:53)
[2020-04-18] MEDS: InsuLIN REG 1unit/0.01ml Soln (100units/ml) SC SCH ×4 (07:00→21:53)
[2020-04-18] MEDS: SEVELAMER 800 MG TAB PO SCH ×3 (08:28→18:17)
[2020-04-18] MEDS: ASCORBIC ACID 500 MG TAB PO SCH ×2 (09:57→21:38)
[2020-04-18] MEDS: B-COMPLEX W/ C & FOLIC ACID(NEPHROVITE TAB) PO SCH (09:57)
[2020-04-18] MEDS: ZINC SULFATE 220mg CAP or TAB PO SCH (09:58)
[2020-04-18] MEDS: NYSTATIN-TRIAMCINOLONE TOPICAL CRE 15GM TOP SCH ×2 (09:58→21:39)
[2020-04-18] MEDS: FAMOTIDINE (10MG/ML) 2ML VL IV SCH (09:58)
[2020-04-18 10:28] LABS: Basophils # (auto) 0 10 ^3/uL (0-0.2); Basophils % (auto) 0.4 % (0.0-2.0); Eosinophils # (auto) 0.1 10 ^3/uL (0-0.8); Eosinophils % (auto) 1.5 % (0.0-7.0); Hematocrit 23.4 % (36.0-46.0); Hemoglobin 7.8 g/dL (12.2-16.2); Lymphocytes # (auto) 1.3 10 ^3/uL (0.4-5.4); Lymphocytes % (auto) 15.1 % (10.0-50.0); Mean Corpuscular Hemoglobin 30.4 pg (28.0-32.0); Mean Corpuscular Hgb Conc. 33.4 g/dL (32.0-36.0); Mean Corpuscular Volume 90.9 fL (80.0-100.0); Monocytes # (auto) 0.7 10 ^3/uL (0-1.3); Monocytes % (auto) 7.9 % (0.0-12.0); Neutrophils # (auto) 6.6 10 ^3/uL (1.6-8.6); Neutrophils % (auto) 75.1 % (37.0-80.0); Nucleated Red Blood Cells % 0.1 %; Platelet Count (auto) 129 10^3/uL (140-450); Red Blood Cells 2.57 10^6/uL (4.0-5.20); White Blood Cell 8.7 10^3/uL (4.4-10.8)
[2020-04-18 10:52] LABS: Potassium 4.4 mmol/L (3.5-5.1)
[2020-04-18 10:59] LABS: BUN/Creatinine Ratio 5.3; Calcium 8.2 mg/dL (8.5-10.1)
[2020-04-19] MEDS: MEROPENEM 500MG IVPB 50 ML IV SCH ×2 (02:49→15:41)
[2020-04-19 05:00] VITALS: BP 96/52
[2020-04-19] MEDS: SODIUM CHLOR 0.9% PF (SALINE LOCK) 10ML VIAL/SYR IV SCH ×2 (06:00→15:41)
[2020-04-19 06:10] LABS: Basophils # (auto) 0 10 ^3/uL (0-0.2); Eosinophils # (auto) 0.1 10 ^3/uL (0-0.8); Hemoglobin 7.4 g/dL (12.2-16.2); Lymphocytes # (auto) 0.9 10 ^3/uL (0.4-5.4); Monocytes # (auto) 0.9 10 ^3/uL (0-1.3); Neutrophils # (auto) 3.8 10 ^3/uL (1.6-8.6); Nucleated Red Blood Cells % 0.1 %; Red Cell Distribution Width 16.1 % (11.8-14.3); White Blood Cell 5.7 10^3/uL (4.4-10.8)
[2020-04-19 06:12] LABS: Basophils % (auto) 0.2 % (0.0-2.0); Eosinophils % (auto) 1.5 % (0.0-7.0); Hematocrit 22.4 % (36.0-46.0); Mean Corpuscular Hemoglobin 30.3 pg (28.0-32.0); Mean Corpuscular Hgb Conc. 33.1 g/dL (32.0-36.0); Mean Corpuscular Volume 91.8 fL (80.0-100.0); Monocytes % (auto) 16.6 % (0.0-12.0); Neutrophils % (auto) 66.7 % (37.0-80.0); Platelet Count (auto) 137 10^3/uL (140-450); Red Blood Cells 2.44 10^6/uL (4.0-5.20)
[2020-04-19 06:34] LABS: BUN/Creatinine Ratio 6.1; Calcium 8.1 mg/dL (8.5-10.1)
[2020-04-19] MEDS: ACCU-CHEK COMFORT CURVE STRIP VI SCH ×2 (06:41→11:29)
[2020-04-19] MEDS: InsuLIN REG 1unit/0.01ml Soln (100units/ml) SC SCH ×2 (06:41→11:18)
[2020-04-19] MEDS ORDERED: SODIUM CHL 0.9% 1000 ML BAG XX ONE (07:00)
[2020-04-19] MEDS: SEVELAMER 800 MG TAB PO SCH ×2 (08:10→12:00)
[2020-04-19 09:00] VITALS: BP 127/63
[2020-04-19] MEDS: ZINC SULFATE 220mg CAP or TAB PO SCH (09:29)
[2020-04-19] MEDS: B-COMPLEX W/ C & FOLIC ACID(NEPHROVITE TAB) PO SCH (09:29)
[2020-04-19] MEDS: ASCORBIC ACID 500 MG TAB PO SCH (09:29)
[2020-04-19] MEDS: NYSTATIN-TRIAMCINOLONE TOPICAL CRE 15GM TOP SCH (10:00)
[2020-04-19 16:31] VITALS: BP 119/63
[2020-04-19 16:44] VITALS: BP 119/63
[2020-04-19] MEDS ORDERED: EPOETIN ALFA 10,000 UNIT/1 ML VIAL SC ONE (21:00)
== END 2020-04-19 18:45 | disposition home health service (06) | DRG 871 ==
LOC: EDBD 19:00 → ER 19:00 → TELE 19:01 → TELE-CENTR 04-18 01:20
PROVIDERS: ADMIT Nurse Practitioner Family; ATTEND Internal Medicine Pulmonary Disease
PROC: 02HV33Z Insertion of Infusion Device into Superior Vena Cava, Percutaneous Approach (ICD-10-PCS; principal; 2020-04-14)
PROC: 5A1D70Z Performance of Urinary Filtration, Intermittent, Less than 6 Hours Per Day (ICD-10-PCS; 2020-04-17)
PROC: 5A1D70Z Performance of Urinary Filtration, Intermittent, Less than 6 Hours Per Day (ICD-10-PCS; 2020-04-19)
DX: A41.51 Sepsis due to Escherichia coli [E. coli] (principal); R65.21 Severe sepsis with septic shock; J18.9 Pneumonia, unspecified organism; N18.6 End stage renal disease; E87.2 Acidosis; I13.2 Hypertensive heart and chronic kidney disease with heart failure and with stage 5 chronic kidney disease, or end stage renal disease; J44.0 Chronic obstructive pulmonary disease with (acute) lower respiratory infection; Z68.41 Body mass index [BMI] 40.0-44.9, adult; Z20.822 Contact with and (suspected) exposure to COVID-19; D63.1 Anemia in chronic kidney disease; E66.01 Morbid (severe) obesity due to excess calories; E11.649 Type 2 diabetes mellitus with hypoglycemia without coma; I50.9 Heart failure, unspecified; E11.22 Type 2 diabetes mellitus with diabetic chronic kidney disease; Z79.84 Long term (current) use of oral hypoglycemic drugs; Z79.899 Other long term (current) drug therapy; Z99.2 Dependence on renal dialysis; Z82.49 Family history of ischemic heart disease and other diseases of the circulatory system
CPT/HCPCS: 36415; 70450; 71045; 72125; 74176; 80048; 80053; 82150; 82962; 83605; 83880; 84484; 85007; 85025; 85027; 85610; 85730; 87040; 87077; 87081; 87186; 87426; 90935; 93005; 93306; 96365; 96366; 96367; G0378; J0885; J1642; J2185; J2405; J2543; J3490; Q0162

== ENCOUNTER 2020-04-27 14:27 | Inpatient (IN) | payer MEDICARE, MEDICAID ==
[~2020-04-27] VITALS: Ht 152.4 cm; Wt 144.2 kg
[2020-04-27] MEDS ORDERED: VANCOMYCIN PER PHARMACY 0 MG IV SCH (19:15)
[2020-04-27] MEDS ORDERED: hydrALAZINE HCL 20 MG/ML VL IV PRN (19:15)
[2020-04-27] MEDS ORDERED: VANCOMYCIN 1GM/250ML 250 ML IV ONE (19:15)
[2020-04-27] MEDS ORDERED: NITROGLYCERIN 0.4 MG SL TAB SL PRN (19:15)
[2020-04-27] MEDS ORDERED: MORPHINE SULF INJ 2 MG/ML SYRINGE 1ML IV PRN (19:15)
[2020-04-27] MEDS ORDERED: PIPERACILLIN-TAZOB 3.375GM 100 ML IV ONE (19:15)
[2020-04-27] MEDS ORDERED: ONDANSETRON HCL 4 MG/2 ML VIAL IV PRN (19:15)
[2020-04-27] MEDS ORDERED: ACETAMINOPHEN 500 MG TAB PO PRN (20:00)
[2020-04-27 20:30] VITALS: BP 122/54
[2020-04-27] MEDS ORDERED: MEROPENEM 500MG IVPB 50 ML IV PRN (21:00)
[2020-04-27] MEDS: VANCOMYCIN 1GM/250ML 250 ML IV SCH (22:15)
[2020-04-27] MEDS ORDERED: MEROPENEM 500MG IVPB 50 ML IV ONE (23:00)
[2020-04-27 23:54] LABS: Basophils # (auto) 0 10 ^3/uL (0-0.2); Basophils % (auto) 0.8 % (0.0-2.0); Eosinophils # (auto) 0 10 ^3/uL (0-0.8); Lymphocytes # (auto) 0.5 10 ^3/uL (0.4-5.4); Monocytes # (auto) 0.1 10 ^3/uL (0-1.3); Platelet Count (auto) 201 10^3/uL (140-450); Red Cell Distribution Width 17.2 % (11.8-14.3); White Blood Cell 2.7 10^3/uL (4.4-10.8)
[2020-04-27 23:57] LABS: Eosinophils % (auto) 1.1 % (0.0-7.0); Hematocrit 25.2 % (36.0-46.0); Hemoglobin 8.1 g/dL (12.2-16.2); Lymphocytes % (auto) 17.4 % (10.0-50.0); Mean Corpuscular Hemoglobin 29.6 pg (28.0-32.0); Mean Corpuscular Hgb Conc. 32.3 g/dL (32.0-36.0); Mean Corpuscular Volume 91.6 fL (80.0-100.0); Monocytes % (auto) 4.3 % (0.0-12.0); Neutrophils # (auto) 2.1 10 ^3/uL (1.6-8.6); Neutrophils % (auto) 76.4 % (37.0-80.0); Nucleated Red Blood Cells % 0.1 %; Red Blood Cells 2.75 10^6/uL (4.0-5.20)
[2020-04-28 00:09] LABS: Albumin 2.1 g/dL (3.4-5.0); BUN/Creatinine Ratio 4.6; Calcium 7.2 mg/dL (8.5-10.1); Potassium 4.7 mmol/L (3.5-5.1)
[2020-04-28 00:11] LABS: Bilirubin, Total 0.3 mg/dL (0.2-1.0); Total Protein 6.5 g/dL (6.4-8.2)
[2020-04-28 00:16] LABS: INR 0.97 (0.9-1.15); Lactate Dehydrogenase 463 U/L (84-246); Partial Thromboplastin Time 33.9 sec (23.0-31.2)
[2020-04-28 00:28] LABS: CRP High Sensitivity > 19.0 mg/dL (< 0.3)
[2020-04-28] MEDS: LACTULOSE 20Gm/30ML SOLN PO SCH ×4 (00:45→18:00)
[2020-04-28] MEDS: SODIUM CHLORIDE 0.9% 1,000 ML IV SCH ×2 (00:45→19:15)
[2020-04-28] MEDS: VANCOMYCIN 1GM/250ML 250 ML IV SCH (00:45)
[2020-04-28] MEDS: MORPHINE SULF INJ 2 MG/ML SYRINGE 1ML IV PRN (05:22)
[2020-04-28 05:35] VITALS: BP 124/68
[2020-04-28] MEDS: ALBUTEROL SULF HFA 90MCG INH 200DOSE IN PRN ×2 (07:52→19:30)
[2020-04-28] MEDS: BUDESONIDE (INHALATION) 180 MCG IH IN SCH ×2 (07:52→19:30)
[2020-04-28] MEDS: SEVELAMER 800 MG TAB PO SCH ×3 (08:00→18:59)
[2020-04-28 09:00] VITALS: BP 121/67
[2020-04-28] MEDS: PANTOPRAZOLE 40 MG/10 ML VIAL INJ IV SCH (09:52)
[2020-04-28] MEDS: ENOXAPARIN SOD 80 MG/0.8ML SYRINGE SC SCH (09:52)
[2020-04-28] MEDS: ASCORBIC ACID 1,000 MG TAB PO SCH (10:00)
[2020-04-28] MEDS: CHOLECALCIFEROL (VITD3) 2,000 UNIT CAP/TAB PO SCH (10:00)
[2020-04-28] MEDS: ZINC SULFATE 220mg CAP or TAB PO SCH (10:00)
[2020-04-28] MEDS: DOCUSATE CALCIUM 240 MG CAP PO SCH (10:00)
[2020-04-28] MEDS: MEROPENEM 500MG IVPB 50 ML IV SCH (10:40)
[2020-04-28 10:59] LABS: INR 0.97 (0.9-1.15)
[2020-04-28 11:02] LABS: Calcium 7.4 mg/dL (8.5-10.1)
[2020-04-28 11:08] LABS: BUN/Creatinine Ratio 5.4; Bilirubin, Total 0.3 mg/dL (0.2-1.0); Magnesium 2.3 mg/dL (1.6-2.6); Phosphorus 4.9 mg/dL (2.5-4.90); Total Protein 6.2 g/dL (6.4-8.2)
[2020-04-28 11:15] LABS: Basophils # (auto) 0 10 ^3/uL (0-0.2); Eosinophils # (auto) 0 10 ^3/uL (0-0.8); Lymphocytes # (auto) 0.3 10 ^3/uL (0.4-5.4); Monocytes # (auto) 0.1 10 ^3/uL (0-1.3); White Blood Cell 2.5 10^3/uL (4.4-10.8)
[2020-04-28 11:18] LABS: Basophils % (auto) 0.6 % (0.0-2.0); Eosinophils % (auto) 1.2 % (0.0-7.0); Hematocrit 23.9 % (36.0-46.0); Hemoglobin 7.9 g/dL (12.2-16.2); Lymphocytes % (auto) 13.5 % (10.0-50.0); Mean Corpuscular Hemoglobin 30.2 pg (28.0-32.0); Mean Corpuscular Hgb Conc. 32.9 g/dL (32.0-36.0); Mean Corpuscular Volume 91.7 fL (80.0-100.0); Monocytes % (auto) 4.8 % (0.0-12.0); Neutrophils % (auto) 79.9 % (37.0-80.0); Nucleated Red Blood Cells % 0.2 %; Platelet Count (auto) 172 10^3/uL (140-450); Red Blood Cells 2.61 10^6/uL (4.0-5.20); Red Cell Distribution Width 17.4 % (11.8-14.3)
[2020-04-28 13:00] VITALS: BP 127/68
[2020-04-28 17:00] VITALS: BP 122/67
[2020-04-28 23:22] VITALS: BP 87/46
[2020-04-29 01:00] VITALS: BP 98/60
[2020-04-29] MEDS: LACTULOSE 20Gm/30ML SOLN PO SCH ×5 (01:11→23:36)
[2020-04-29 05:17] VITALS: BP 97/54
[2020-04-29] MEDS: BUDESONIDE (INHALATION) 180 MCG IH IN SCH ×2 (07:50→18:15)
[2020-04-29] MEDS: ALBUTEROL SULF HFA 90MCG INH 200DOSE IN PRN ×2 (07:50→18:15)
[2020-04-29] MEDS: SEVELAMER 800 MG TAB PO SCH ×3 (08:00→18:00)
[2020-04-29 09:00] VITALS: BP 105/71
[2020-04-29] MEDS: ZINC SULFATE 220mg CAP or TAB PO SCH (10:00)
[2020-04-29] MEDS: ENOXAPARIN SOD 80 MG/0.8ML SYRINGE SC SCH ×2 (10:00→22:23)
[2020-04-29] MEDS: CHOLECALCIFEROL (VITD3) 2,000 UNIT CAP/TAB PO SCH (10:00)
[2020-04-29] MEDS: DOCUSATE CALCIUM 240 MG CAP PO SCH (10:00)
[2020-04-29] MEDS: ASCORBIC ACID 1,000 MG TAB PO SCH (10:00)
[2020-04-29 13:00] VITALS: BP 112/63
[2020-04-29] MEDS: PANTOPRAZOLE 40 MG/10 ML VIAL INJ IV SCH (13:43)
[2020-04-29] MEDS: MEROPENEM 500MG IVPB 50 ML IV SCH (14:27)
[2020-04-29 17:00] VITALS: BP 117/77
[2020-04-29 22:00] VITALS: BP 99/73
[2020-04-29] MEDS: SODIUM CHLORIDE 0.9% 1,000 ML IV SCH (22:23)
[2020-04-30 05:00] VITALS: BP 114/60
[2020-04-30] MEDS: LACTULOSE 20Gm/30ML SOLN PO SCH ×4 (05:36→23:55)
[2020-04-30] MEDS: BUDESONIDE (INHALATION) 180 MCG IH IN SCH ×2 (07:03→19:43)
[2020-04-30] MEDS: SEVELAMER 800 MG TAB PO SCH ×3 (08:00→18:00)
[2020-04-30] MEDS: ALBUTEROL SULF HFA 90MCG INH 200DOSE IN PRN ×2 (08:19→19:43)
[2020-04-30 09:00] VITALS: BP 116/66
[2020-04-30 09:58] VITALS: BP 116/66
[2020-04-30] MEDS: ZINC SULFATE 220mg CAP or TAB PO SCH (10:00)
[2020-04-30] MEDS: ASCORBIC ACID 1,000 MG TAB PO SCH (10:00)
[2020-04-30] MEDS: CHOLECALCIFEROL (VITD3) 2,000 UNIT CAP/TAB PO SCH (10:00)
[2020-04-30] MEDS: DOCUSATE CALCIUM 240 MG CAP PO SCH (10:00)
[2020-04-30] MEDS: PANTOPRAZOLE 40 MG/10 ML VIAL INJ IV SCH (10:56)
[2020-04-30] MEDS: DexAMETHasone SOD PHOS 10MG/1ML VIAL INJ IV SCH (10:56)
[2020-04-30] MEDS: ENOXAPARIN SOD 80 MG/0.8ML SYRINGE SC SCH ×2 (10:57→22:04)
[2020-04-30] MEDS ORDERED: AZITHROMYCIN 500MG/ 250ML 250 ML IV ONE (12:00)
[2020-04-30] MEDS ORDERED: CEFTRIAXONE SODIUM 2 GM in D5W 5% 50 ML IV ONE (12:00)
[2020-04-30 13:00] VITALS: BP 135/86
[2020-04-30] MEDS ORDERED: VANCOMYCIN 1GM/250ML 250 ML IV ONE (16:00)
[2020-04-30 16:47] VITALS: BP 126/72
[2020-04-30] MEDS ORDERED: MEROPENEM 1GM IVPB 100 ML IV SCH (17:00)
[2020-04-30] MEDS: MORPHINE SULF INJ 2 MG/ML SYRINGE 1ML IV PRN (22:03)
[2020-04-30] MEDS: SODIUM CHLORIDE 0.9% 1,000 ML IV SCH (22:04)
[2020-04-30 22:21] VITALS: BP 141/80
[2020-04-30] MEDS ORDERED: diphenhdrAMINE HCL 25 MG CAP PO ONE (22:45)
[2020-05-01 05:00] VITALS: BP 132/64
[2020-05-01] MEDS: LACTULOSE 20Gm/30ML SOLN PO SCH ×4 (06:00→17:31)
[2020-05-01] MEDS ORDERED: SODIUM CHL 0.9% 1000 ML BAG XX ONE (07:00)
[2020-05-01] MEDS: BUDESONIDE (INHALATION) 180 MCG IH IN SCH ×2 (07:57→18:54)
[2020-05-01] MEDS: SEVELAMER 800 MG TAB PO SCH ×3 (08:00→17:32)
[2020-05-01 08:42] VITALS: BP 117/72
[2020-05-01] MEDS ORDERED: cefTRIAXone 1GM/50ML D5W 50 ML IV SCH (09:00)
[2020-05-01] MEDS: ZINC SULFATE 220mg CAP or TAB PO SCH (09:06)
[2020-05-01] MEDS: ASCORBIC ACID 1,000 MG TAB PO SCH (09:06)
[2020-05-01] MEDS: DOCUSATE CALCIUM 240 MG CAP PO SCH (09:06)
[2020-05-01] MEDS: CHOLECALCIFEROL (VITD3) 2,000 UNIT CAP/TAB PO SCH (09:06)
[2020-05-01] MEDS: DexAMETHasone SOD PHOS 10MG/1ML VIAL INJ IV SCH (09:14)
[2020-05-01] MEDS: AZITHROMYCIN 500MG/ 250ML 250 ML IV SCH (09:15)
[2020-05-01] MEDS: PANTOPRAZOLE 40 MG/10 ML VIAL INJ IV SCH (09:15)
[2020-05-01] MEDS: ENOXAPARIN SOD 80 MG/0.8ML SYRINGE SC SCH ×2 (10:00→21:21)
[2020-05-01] MEDS ORDERED: LIDOCAINE 2%HCL (LOCAL ANESTH.) INJ 20ML MDV ONE ×2 (10:18→14:43)
[2020-05-01] MEDS ORDERED: HEPARIN SODIUM (PORCINE) 5000 UNITS/ML 1ML VIAL ONE (12:52)
[2020-05-01] MEDS ORDERED: fentaNYL CITRATE 100 MCG/2 ML VL ONE (12:52)
[2020-05-01] MEDS ORDERED: MIDAZOLAM HCL 1MG/1ML-2 ML VIAL ONE (12:53)
[2020-05-01 12:59] VITALS: BP 133/74
[2020-05-01] MEDS: MORPHINE SULF INJ 2 MG/ML SYRINGE 1ML IV PRN (15:59)
[2020-05-01 16:42] VITALS: BP 133/73
[2020-05-01] MEDS: ALBUTEROL SULF HFA 90MCG INH 200DOSE IN PRN (18:54)
[2020-05-01] MEDS ORDERED: EPOETIN ALFA 10,000 UNIT/1 ML VIAL SC ONE (21:00)
[2020-05-01] MEDS: SODIUM CHLORIDE 0.9% 1,000 ML IV SCH (21:15)
[2020-05-01 22:00] VITALS: BP 122/78
[2020-05-01 22:34] LABS: Basophils # (auto) 0 10 ^3/uL (0-0.2); Basophils % (auto) 0.2 % (0.0-2.0); Eosinophils # (auto) 0 10 ^3/uL (0-0.8); Hemoglobin 7.2 g/dL (12.2-16.2); Lymphocytes # (auto) 0.4 10 ^3/uL (0.4-5.4); Lymphocytes % (auto) 8.1 % (10.0-50.0); Mean Corpuscular Hemoglobin 29.9 pg (28.0-32.0); Mean Corpuscular Hgb Conc. 32.8 g/dL (32.0-36.0); Mean Corpuscular Volume 91.2 fL (80.0-100.0); Monocytes # (auto) 0.4 10 ^3/uL (0-1.3); Neutrophils # (auto) 4.2 10 ^3/uL (1.6-8.6); Neutrophils % (auto) 84.7 % (37.0-80.0); Platelet Count (auto) 183 10^3/uL (140-450); Red Blood Cells 2.42 10^6/uL (4.0-5.20); Red Cell Distribution Width 17.4 % (11.8-14.3)
[2020-05-01 22:49] LABS: Albumin 1.8 g/dL (3.4-5.0); Calcium 7.6 mg/dL (8.5-10.1)
[2020-05-01 22:53] LABS: BUN/Creatinine Ratio 5.7; Bilirubin, Total 0.3 mg/dL (0.2-1.0); Total Protein 5.9 g/dL (6.4-8.2)
[2020-05-01 22:55] LABS: Potassium 5.9 mmol/L (3.5-5.1)
[2020-05-01 22:57] LABS: % Iron Saturation 67.3 % (15-50)
[2020-05-01] MEDS ORDERED: SODIUM ZIRCONIUM CYCL 10 GM PAK PO ONE (23:00)
[2020-05-02 05:00] VITALS: BP 130/66
[2020-05-02] MEDS: LACTULOSE 20Gm/30ML SOLN PO SCH ×4 (05:09→17:56)
[2020-05-02 05:58] LABS: Basophils # (auto) 0 10 ^3/uL (0-0.2); Basophils % (auto) 0.2 % (0.0-2.0); Eosinophils # (auto) 0 10 ^3/uL (0-0.8); Eosinophils % (auto) 0.1 % (0.0-7.0); Hematocrit 23.5 % (36.0-46.0); Hemoglobin 7.5 g/dL (12.2-16.2); Lymphocytes # (auto) 0.5 10 ^3/uL (0.4-5.4); Lymphocytes % (auto) 8.9 % (10.0-50.0); Mean Corpuscular Hemoglobin 29.1 pg (28.0-32.0); Mean Corpuscular Hgb Conc. 32.1 g/dL (32.0-36.0); Mean Corpuscular Volume 90.7 fL (80.0-100.0); Monocytes # (auto) 0.5 10 ^3/uL (0-1.3); Monocytes % (auto) 8.3 % (0.0-12.0); Neutrophils # (auto) 4.9 10 ^3/uL (1.6-8.6); Neutrophils % (auto) 82.5 % (37.0-80.0); Platelet Count (auto) 211 10^3/uL (140-450); Red Cell Distribution Width 17.3 % (11.8-14.3); White Blood Cell 5.9 10^3/uL (4.4-10.8)
[2020-05-02 06:30] LABS: BUN/Creatinine Ratio 6.1; Bilirubin, Total 0.4 mg/dL (0.2-1.0); Calcium 7.6 mg/dL (8.5-10.1); Total Protein 6.2 g/dL (6.4-8.2)
[2020-05-02 06:36] LABS: Potassium 5.6 mmol/L (3.5-5.1)
[2020-05-02] MEDS ORDERED: SODIUM CHL 0.9% 1000 ML BAG XX ONE (07:00)
[2020-05-02] MEDS: BUDESONIDE (INHALATION) 180 MCG IH IN SCH ×2 (07:10→22:18)
[2020-05-02] MEDS: SEVELAMER 800 MG TAB PO SCH ×3 (08:00→17:57)
[2020-05-02 09:00] VITALS: BP 113/73
[2020-05-02] MEDS: MEROPENEM 500MG IVPB 50 ML IV SCH (09:49)
[2020-05-02] MEDS: DexAMETHasone SOD PHOS 10MG/1ML VIAL INJ IV SCH (09:49)
[2020-05-02] MEDS: PANTOPRAZOLE 40 MG/10 ML VIAL INJ IV SCH (09:50)
[2020-05-02] MEDS: AZITHROMYCIN 500MG/ 250ML 250 ML IV SCH (09:50)
[2020-05-02] MEDS: DOCUSATE CALCIUM 240 MG CAP PO SCH (09:51)
[2020-05-02] MEDS: ZINC SULFATE 220mg CAP or TAB PO SCH (09:51)
[2020-05-02] MEDS: ENOXAPARIN SOD 80 MG/0.8ML SYRINGE SC SCH (09:52)
[2020-05-02] MEDS: ASCORBIC ACID 1,000 MG TAB PO SCH (09:52)
[2020-05-02] MEDS: CHOLECALCIFEROL (VITD3) 2,000 UNIT CAP/TAB PO SCH (09:52)
[2020-05-02] MEDS ORDERED: ENOXAPARIN SOD 80 MG/0.8ML SYRINGE SC SCH (10:00)
[2020-05-02 13:00] VITALS: BP 117/74
[2020-05-02 17:00] VITALS: BP 133/71
[2020-05-02] MEDS: SODIUM CHLORIDE 0.9% 1,000 ML IV SCH (19:15)
[2020-05-02] MEDS ORDERED: EPOETIN ALFA-EPBX 10,000 UNIT/1ML VIAL SC ONE (21:00)
[2020-05-02 22:00] VITALS: BP 132/77
[2020-05-02] MEDS: ALBUTEROL SULF HFA 90MCG INH 200DOSE IN PRN (22:18)
[2020-05-03] VITALS (11 sets, daily range): BP systolic 124–145; BP diastolic 50–82
[2020-05-03] MEDS: LACTULOSE 20Gm/30ML SOLN PO SCH ×4 (00:07→18:00)
[2020-05-03 06:12] LABS: Basophils # (auto) 0 10 ^3/uL (0-0.2); Eosinophils # (auto) 0 10 ^3/uL (0-0.8); Lymphocytes # (auto) 0.4 10 ^3/uL (0.4-5.4); Lymphocytes % (auto) 10.7 % (10.0-50.0); Neutrophils # (auto) 3.1 10 ^3/uL (1.6-8.6); Potassium 4.3 mmol/L (3.5-5.1)
[2020-05-03 06:14] LABS: Basophils % (auto) 0.2 % (0.0-2.0); Mean Corpuscular Hemoglobin 29.3 pg (28.0-32.0); Mean Corpuscular Hgb Conc. 32.9 g/dL (32.0-36.0); Mean Corpuscular Volume 89.2 fL (80.0-100.0); Monocytes # (auto) 0.5 10 ^3/uL (0-1.3); Monocytes % (auto) 11.5 % (0.0-12.0); Neutrophils % (auto) 77.6 % (37.0-80.0); Nucleated Red Blood Cells % 0.1 %; Platelet Count (auto) 158 10^3/uL (140-450); Red Blood Cells 2.25 10^6/uL (4.0-5.20); Red Cell Distribution Width 17.4 % (11.8-14.3)
[2020-05-03 06:19] LABS: BUN/Creatinine Ratio 5.2; Bilirubin, Total 0.4 mg/dL (0.2-1.0); Calcium 7.6 mg/dL (8.5-10.1); Hemoglobin 6.6 g/dL (12.2-16.2); Total Protein 5.9 g/dL (6.4-8.2)
[2020-05-03] MEDS: BUDESONIDE (INHALATION) 180 MCG IH IN SCH ×2 (06:20→18:52)
[2020-05-03] MEDS: AZITHROMYCIN 500MG/ 250ML 250 ML IV SCH (08:49)
[2020-05-03] MEDS: ASCORBIC ACID 1,000 MG TAB PO SCH (08:50)
[2020-05-03] MEDS: SEVELAMER 800 MG TAB PO SCH ×3 (08:50→18:17)
[2020-05-03] MEDS: CHOLECALCIFEROL (VITD3) 2,000 UNIT CAP/TAB PO SCH (08:51)
[2020-05-03] MEDS: ZINC SULFATE 220mg CAP or TAB PO SCH (08:51)
[2020-05-03] MEDS: DexAMETHasone SOD PHOS 10MG/1ML VIAL INJ IV SCH (08:52)
[2020-05-03] MEDS: PANTOPRAZOLE 40 MG/10 ML VIAL INJ IV SCH (08:53)
[2020-05-03] MEDS: DOCUSATE CALCIUM 240 MG CAP PO SCH (08:53)
[2020-05-03] MEDS: ENOXAPARIN SOD 80 MG/0.8ML SYRINGE SC SCH (08:54)
[2020-05-03] MEDS: MEROPENEM 500MG IVPB 50 ML IV SCH (11:53)
[2020-05-03] MEDS: ALBUTEROL SULF HFA 90MCG INH 200DOSE IN PRN (18:52)
[2020-05-03] MEDS: SODIUM CHLORIDE 0.9% 1,000 ML IV SCH (19:15)
[2020-05-04] VITALS (7 sets, daily range): BP systolic 102–140; BP diastolic 58–81
[2020-05-04] MEDS: LACTULOSE 20Gm/30ML SOLN PO SCH ×5 (05:24→23:40)
[2020-05-04 06:13] LABS: Hematocrit 27.4 % (36.0-46.0); Hemoglobin 9.1 g/dL (12.2-16.2); Mean Corpuscular Hemoglobin 28.9 pg (28.0-32.0); Mean Corpuscular Hgb Conc. 33.1 g/dL (32.0-36.0); Mean Corpuscular Volume 87.5 fL (80.0-100.0); Platelet Count (auto) 164 10^3/uL (140-450); Red Blood Cells 3.13 10^6/uL (4.0-5.20); Red Cell Distribution Width 17.4 % (11.8-14.3); White Blood Cell 5.2 10^3/uL (4.4-10.8)
[2020-05-04 06:29] LABS: Potassium 4.5 mmol/L (3.5-5.1)
[2020-05-04 06:34] LABS: BUN/Creatinine Ratio 5.8
[2020-05-04] MEDS ORDERED: SODIUM CHL 0.9% 1000 ML BAG XX ONE ×2 (07:00)
[2020-05-04 07:03] LABS: Basophils % (manual) 0 (0.0-2.0); Blast Cells 0; Eosinophils % (manual) 0 (0-7); Myelocytes % 0; Promyelocytes % 0; Reactive Lymphocytes 0
[2020-05-04] MEDS: ALBUTEROL SULF HFA 90MCG INH 200DOSE IN PRN ×2 (07:59→19:34)
[2020-05-04] MEDS: BUDESONIDE (INHALATION) 180 MCG IH IN SCH ×2 (07:59→19:34)
[2020-05-04 08:04] LABS: Band Neutrophils % (manual) 2; Lymphocytes % (manual) 20 (10.0-50.0); Metamyelocytes % 1; Monocytes % (manual) 5 (0-12)
[2020-05-04] MEDS: DexAMETHasone SOD PHOS 10MG/1ML VIAL INJ IV SCH (08:08)
[2020-05-04] MEDS: ASCORBIC ACID 1,000 MG TAB PO SCH (08:08)
[2020-05-04] MEDS: SEVELAMER 800 MG TAB PO SCH ×3 (08:08→18:00)
[2020-05-04] MEDS: PANTOPRAZOLE 40 MG/10 ML VIAL INJ IV SCH (08:08)
[2020-05-04] MEDS: ENOXAPARIN SOD 80 MG/0.8ML SYRINGE SC SCH (08:08)
[2020-05-04] MEDS: CHOLECALCIFEROL (VITD3) 2,000 UNIT CAP/TAB PO SCH (08:08)
[2020-05-04] MEDS: ZINC SULFATE 220mg CAP or TAB PO SCH (08:08)
[2020-05-04] MEDS: MORPHINE SULF INJ 2 MG/ML SYRINGE 1ML IV PRN ×2 (08:09→22:34)
[2020-05-04] MEDS: AZITHROMYCIN 500MG/ 250ML 250 ML IV SCH (08:09)
[2020-05-04] MEDS: DOCUSATE CALCIUM 240 MG CAP PO SCH (08:38)
[2020-05-04] MEDS: MEROPENEM 500MG IVPB 50 ML IV SCH (10:00)
[2020-05-04] MEDS: SODIUM CHLORIDE 0.9% 1,000 ML IV SCH (19:15)
[2020-05-04] MEDS ORDERED: EPOETIN ALFA-EPBX 10,000 UNIT/1ML VIAL SC ONE ×2 (21:00)
[2020-05-05 05:07] VITALS: BP 147/69
[2020-05-05] MEDS: LACTULOSE 20Gm/30ML SOLN PO SCH ×3 (05:38→18:00)
[2020-05-05 06:08] LABS: Hematocrit 26.3 % (36.0-46.0); Hemoglobin 8.9 g/dL (12.2-16.2); Mean Corpuscular Hemoglobin 30.3 pg (28.0-32.0); Mean Corpuscular Hgb Conc. 33.8 g/dL (32.0-36.0); Mean Corpuscular Volume 89.7 fL (80.0-100.0); Platelet Count (auto) 122 10^3/uL (140-450); Red Blood Cells 2.93 10^6/uL (4.0-5.20); Red Cell Distribution Width 17.5 % (11.8-14.3); White Blood Cell 4.3 10^3/uL (4.4-10.8)
[2020-05-05 06:27] LABS: Basophils % (manual) 0 (0.0-2.0); Blast Cells 0; Metamyelocytes % 0; Promyelocytes % 0; Reactive Lymphocytes 0
[2020-05-05 06:34] LABS: Calcium 8.2 mg/dL (8.5-10.1); Potassium 3.8 mmol/L (3.5-5.1)
[2020-05-05 06:40] LABS: BUN/Creatinine Ratio 5.2; Bilirubin, Total 0.4 mg/dL (0.2-1.0); Total Protein 5.6 g/dL (6.4-8.2)
[2020-05-05] MEDS: ALBUTEROL SULF HFA 90MCG INH 200DOSE IN PRN ×2 (07:04→19:11)
[2020-05-05] MEDS: BUDESONIDE (INHALATION) 180 MCG IH IN SCH ×2 (07:04→19:11)
[2020-05-05] MEDS: SEVELAMER 800 MG TAB PO SCH ×4 (08:00→18:30)
[2020-05-05 09:00] VITALS: BP_SYST 149; BP_DIAS 72; BP_DIAS 80
[2020-05-05] MEDS: ASCORBIC ACID 1,000 MG TAB PO SCH ×2 (10:00→11:15)
[2020-05-05] MEDS: ZINC SULFATE 220mg CAP or TAB PO SCH ×2 (10:00→11:15)
[2020-05-05] MEDS: DOCUSATE CALCIUM 240 MG CAP PO SCH (10:00)
[2020-05-05] MEDS: MEROPENEM 500MG IVPB 50 ML IV SCH (10:00)
[2020-05-05 11:13] LABS: Band Neutrophils % (manual) 1; Eosinophils % (manual) 2 (0-7); Lymphocytes % (manual) 17 (10.0-50.0); Monocytes % (manual) 6 (0-12); Myelocytes % 3
[2020-05-05] MEDS: PANTOPRAZOLE 40 MG/10 ML VIAL INJ IV SCH (11:14)
[2020-05-05] MEDS: DexAMETHasone SOD PHOS 10MG/1ML VIAL INJ IV SCH (11:14)
[2020-05-05] MEDS: AZITHROMYCIN 500MG/ 250ML 250 ML IV SCH (11:15)
[2020-05-05] MEDS: CHOLECALCIFEROL (VITD3) 2,000 UNIT CAP/TAB PO SCH (11:16)
[2020-05-05] MEDS: ENOXAPARIN SOD 80 MG/0.8ML SYRINGE SC SCH (11:16)
[2020-05-05 13:00] VITALS: BP 153/72
[2020-05-05] MEDS: MORPHINE SULF INJ 2 MG/ML SYRINGE 1ML IV PRN (14:58)
[2020-05-05 17:00] VITALS: BP 136/83
[2020-05-05] MEDS: SODIUM CHLORIDE 0.9% 1,000 ML IV SCH (19:15)
[2020-05-06] VITALS: BP 141/76
[2020-05-06] MEDS: LACTULOSE 20Gm/30ML SOLN PO SCH ×4 (05:51→23:53)
[2020-05-06 05:57] VITALS: BP 113/77
[2020-05-06 06:30] LABS: Basophils # (auto) 0 10 ^3/uL (0-0.2); Basophils % (auto) 0.2 % (0.0-2.0); Eosinophils # (auto) 0 10 ^3/uL (0-0.8); Eosinophils % (auto) 0.2 % (0.0-7.0); Hemoglobin 8.3 g/dL (12.2-16.2); Lymphocytes # (auto) 0.8 10 ^3/uL (0.4-5.4); Lymphocytes % (auto) 12.4 % (10.0-50.0); Mean Corpuscular Hemoglobin 29.7 pg (28.0-32.0); Mean Corpuscular Hgb Conc. 33.4 g/dL (32.0-36.0); Mean Corpuscular Volume 88.9 fL (80.0-100.0); Monocytes # (auto) 0.7 10 ^3/uL (0-1.3); Monocytes % (auto) 11.1 % (0.0-12.0); Neutrophils # (auto) 4.9 10 ^3/uL (1.6-8.6); Neutrophils % (auto) 76.1 % (37.0-80.0); Platelet Count (auto) 127 10^3/uL (140-450); Red Blood Cells 2.81 10^6/uL (4.0-5.20); Red Cell Distribution Width 16.8 % (11.8-14.3); White Blood Cell 6.4 10^3/uL (4.4-10.8)
[2020-05-06 06:46] LABS: BUN/Creatinine Ratio 5.5; Potassium 3.9 mmol/L (3.5-5.1)
[2020-05-06 06:49] LABS: Bilirubin, Total 0.4 mg/dL (0.2-1.0); Total Protein 5.7 g/dL (6.4-8.2)
[2020-05-06] MEDS: BUDESONIDE (INHALATION) 180 MCG IH IN SCH (07:12)
[2020-05-06] MEDS: SEVELAMER 800 MG TAB PO SCH ×3 (08:00→18:00)
[2020-05-06 09:00] VITALS: BP 148/78
[2020-05-06] MEDS: AZITHROMYCIN 500MG/ 250ML 250 ML IV SCH (09:10)
[2020-05-06] MEDS: ASCORBIC ACID 1,000 MG TAB PO SCH (10:00)
[2020-05-06] MEDS: ZINC SULFATE 220mg CAP or TAB PO SCH (10:00)
[2020-05-06] MEDS: CHOLECALCIFEROL (VITD3) 2,000 UNIT CAP/TAB PO SCH (10:00)
[2020-05-06] MEDS: DOCUSATE CALCIUM 240 MG CAP PO SCH (10:00)
[2020-05-06] MEDS: MEROPENEM 500MG IVPB 50 ML IV SCH (11:34)
[2020-05-06] MEDS: DexAMETHasone SOD PHOS 10MG/1ML VIAL INJ IV SCH (11:35)
[2020-05-06] MEDS: PANTOPRAZOLE 40 MG/10 ML VIAL INJ IV SCH (11:35)
[2020-05-06] MEDS: ENOXAPARIN SOD 80 MG/0.8ML SYRINGE SC SCH (11:36)
[2020-05-06 13:00] VITALS: BP 136/75
[2020-05-06 17:00] VITALS: BP 150/79
[2020-05-06] MEDS: SODIUM CHLORIDE 0.9% 1,000 ML IV SCH (19:15)
[2020-05-06] MEDS: ALBUTEROL SULF 2.5 MG/0.5ML(0.5%) NEB SOLN NEB SCH (20:39)
[2020-05-06] MEDS: BUDESONIDE (INHALATION) 0.5 MG/2 ML NEB NEB SCH (20:39)
[2020-05-06 21:00] VITALS: BP 153/87
[2020-05-07 05:00] VITALS: BP 143/74
[2020-05-07 05:49] LABS: Hematocrit 24.2 % (36.0-46.0); Mean Corpuscular Hemoglobin 29.5 pg (28.0-32.0); Mean Corpuscular Volume 89.2 fL (80.0-100.0); Platelet Count (auto) 118 10^3/uL (140-450); Red Blood Cells 2.72 10^6/uL (4.0-5.20); Red Cell Distribution Width 17.2 % (11.8-14.3)
[2020-05-07] MEDS: ALBUTEROL SULF 2.5 MG/0.5ML(0.5%) NEB SOLN NEB SCH ×3 (06:00→18:51)
[2020-05-07] MEDS: LACTULOSE 20Gm/30ML SOLN PO SCH ×3 (06:00→18:00)
[2020-05-07 06:03] LABS: Albumin 2.1 g/dL (3.4-5.0); Calcium 7.9 mg/dL (8.5-10.1); Potassium 3.9 mmol/L (3.5-5.1)
[2020-05-07] MEDS: BUDESONIDE (INHALATION) 0.5 MG/2 ML NEB NEB SCH ×2 (06:04→18:51)
[2020-05-07 06:10] LABS: BUN/Creatinine Ratio 5.7; Bilirubin, Total 0.4 mg/dL (0.2-1.0); Total Protein 5.4 g/dL (6.4-8.2)
[2020-05-07 06:26] LABS: Basophils % (manual) 0 (0.0-2.0); Blast Cells 0; Metamyelocytes % 0; Promyelocytes % 0; Reactive Lymphocytes 0
[2020-05-07 06:55] LABS: Band Neutrophils % (manual) 1; Eosinophils % (manual) 1 (0-7); Lymphocytes % (manual) 17 (10.0-50.0); Monocytes % (manual) 5 (0-12); Myelocytes % 2
[2020-05-07] MEDS: SEVELAMER 800 MG TAB PO SCH ×3 (08:00→18:00)
[2020-05-07 09:28] VITALS: BP 141/71
[2020-05-07] MEDS: CHOLECALCIFEROL (VITD3) 2,000 UNIT CAP/TAB PO SCH (10:00)
[2020-05-07] MEDS: ASCORBIC ACID 1,000 MG TAB PO SCH (10:00)
[2020-05-07] MEDS: DOCUSATE CALCIUM 240 MG CAP PO SCH (10:00)
[2020-05-07] MEDS: ENOXAPARIN SOD 80 MG/0.8ML SYRINGE SC SCH (10:00)
[2020-05-07] MEDS: ZINC SULFATE 220mg CAP or TAB PO SCH (10:00)
[2020-05-07 10:25] LABS: Folate (Folic Acid) 2.62 ng/mL (5.38-24)
[2020-05-07] MEDS: PANTOPRAZOLE 40 MG/10 ML VIAL INJ IV SCH (10:48)
[2020-05-07] MEDS: MEROPENEM 500MG IVPB 50 ML IV SCH (10:48)
[2020-05-07] MEDS: DexAMETHasone SOD PHOS 10MG/1ML VIAL INJ IV SCH (10:48)
[2020-05-07] MEDS ORDERED: SODIUM CHL 0.9% 1000 ML BAG XX ONE ×2 (11:15→12:00)
[2020-05-07] MEDS: AZITHROMYCIN 500MG/ 250ML 250 ML IV SCH (12:42)
[2020-05-07 14:45] VITALS: BP 88/52
[2020-05-07 17:29] VITALS: BP 134/75
[2020-05-07] MEDS ORDERED: EPOETIN ALFA-EPBX 10,000 UNIT/1ML VIAL SC ONE (21:00)
[2020-05-07] MEDS: FOLIC ACID 1 MG in D5W 5% 50 ML INJ SCH (21:27)
[2020-05-07] MEDS: SODIUM CHLORIDE 0.9% 1,000 ML IV SCH (21:32)
[2020-05-07 21:54] VITALS: BP 134/67
[2020-05-07 23:10] LABS: Folate (Folic Acid) > 24.00 ng/mL (5.38-24)
[2020-05-08 05:00] VITALS: BP 142/77
[2020-05-08] MEDS: LACTULOSE 20Gm/30ML SOLN PO SCH ×4 (05:12→18:00)
[2020-05-08] MEDS: ALBUTEROL SULF 2.5 MG/0.5ML(0.5%) NEB SOLN NEB SCH ×3 (06:27→18:48)
[2020-05-08] MEDS: BUDESONIDE (INHALATION) 0.5 MG/2 ML NEB NEB SCH ×2 (06:27→18:48)
[2020-05-08 08:32] VITALS: BP 124/65
[2020-05-08] MEDS: SEVELAMER 800 MG TAB PO SCH ×3 (08:51→18:00)
[2020-05-08] MEDS: ASCORBIC ACID 1,000 MG TAB PO SCH (10:00)
[2020-05-08] MEDS: CHOLECALCIFEROL (VITD3) 2,000 UNIT CAP/TAB PO SCH (10:00)
[2020-05-08] MEDS: DOCUSATE CALCIUM 240 MG CAP PO SCH (10:00)
[2020-05-08] MEDS: ZINC SULFATE 220mg CAP or TAB PO SCH (10:00)
[2020-05-08] MEDS: DexAMETHasone SOD PHOS 10MG/1ML VIAL INJ IV SCH (11:23)
[2020-05-08] MEDS: FOLIC ACID 1 MG in D5W 5% 50 ML INJ SCH (11:23)
[2020-05-08] MEDS: PANTOPRAZOLE 40 MG/10 ML VIAL INJ IV SCH (11:23)
[2020-05-08] MEDS: AZITHROMYCIN 500MG/ 250ML 250 ML IV SCH (11:24)
[2020-05-08] MEDS: ENOXAPARIN SOD 80 MG/0.8ML SYRINGE SC SCH (11:25)
[2020-05-08 12:35] VITALS: BP 134/72
[2020-05-08] MEDS: MEROPENEM 500MG IVPB 50 ML IV SCH (14:38)
[2020-05-08 16:39] VITALS: BP 120/76
[2020-05-08] MEDS: D5W 5% 1,000 ML IV SCH ×2 (18:26→20:47)
[2020-05-08 22:57] VITALS: BP 152/76
[2020-05-09 05:30] VITALS: BP 122/80
[2020-05-09] MEDS: LACTULOSE 20Gm/30ML SOLN PO SCH ×4 (05:41→17:32)
[2020-05-09] MEDS ORDERED: SODIUM CHL 0.9% 1000 ML BAG XX ONE (07:00)
[2020-05-09] MEDS: SEVELAMER 800 MG TAB PO SCH ×3 (07:43→17:32)
[2020-05-09 08:30] VITALS: BP 133/77
[2020-05-09] MEDS: BUDESONIDE (INHALATION) 0.5 MG/2 ML NEB NEB SCH ×2 (08:42→22:25)
[2020-05-09] MEDS: ALBUTEROL SULF 2.5 MG/0.5ML(0.5%) NEB SOLN NEB SCH ×3 (08:42→22:25)
[2020-05-09] MEDS: ASCORBIC ACID 1,000 MG TAB PO SCH (10:00)
[2020-05-09] MEDS: ZINC SULFATE 220mg CAP or TAB PO SCH (10:00)
[2020-05-09] MEDS: DOCUSATE CALCIUM 240 MG CAP PO SCH (10:00)
[2020-05-09] MEDS: CHOLECALCIFEROL (VITD3) 2,000 UNIT CAP/TAB PO SCH (10:00)
[2020-05-09] MEDS: PANTOPRAZOLE 40 MG/10 ML VIAL INJ IV SCH (10:55)
[2020-05-09] MEDS: DexAMETHasone SOD PHOS 10MG/1ML VIAL INJ IV SCH (10:55)
[2020-05-09] MEDS: FOLIC ACID 1 MG in D5W 5% 50 ML INJ SCH (10:55)
[2020-05-09] MEDS: ENOXAPARIN SOD 80 MG/0.8ML SYRINGE SC SCH (10:56)
[2020-05-09] MEDS: AZITHROMYCIN 500MG/ 250ML 250 ML IV SCH (11:18)
[2020-05-09 12:30] VITALS: BP 125/66
[2020-05-09 13:26] VITALS: BP 133/77
[2020-05-09] MEDS: MEROPENEM 500MG IVPB 50 ML IV SCH (13:32)
[2020-05-09 17:00] VITALS: BP 124/69
[2020-05-09] MEDS: EPOETIN ALFA-EPBX 10,000 UNIT/1ML VIAL SC ONE ×2 (21:00→22:20)
[2020-05-09 22:00] VITALS: BP 128/71
[2020-05-09] MEDS: APIXABAN 5 MG TAB PO SCH ×2 (22:00→22:21)
[2020-05-10 05:00] VITALS: BP 152/88
[2020-05-10 05:35] VITALS: BP 148/86
[2020-05-10] MEDS: LACTULOSE 20Gm/30ML SOLN PO SCH ×2 (06:00)
[2020-05-10] MEDS: BUDESONIDE (INHALATION) 0.5 MG/2 ML NEB NEB SCH (06:32)
[2020-05-10] MEDS: ALBUTEROL SULF 2.5 MG/0.5ML(0.5%) NEB SOLN NEB SCH (06:32)
[2020-05-10 07:09] LABS: Potassium 3.8 mmol/L (3.5-5.1)
[2020-05-10 07:17] LABS: Albumin 2.3 g/dL (3.4-5.0); BUN/Creatinine Ratio 6.4; Bilirubin, Total 0.4 mg/dL (0.2-1.0); Calcium 8.7 mg/dL (8.5-10.1); Total Protein 5.9 g/dL (6.4-8.2)
[2020-05-10] MEDS: SEVELAMER 800 MG TAB PO SCH (08:00)
[2020-05-10 09:00] VITALS: BP 130/70
== END 2020-05-10 09:27 | disposition home or self-care (01) | DRG 673 ==
LOC: ER 14:27 → EDBD 14:27 → TELE 19:46 → TELE-EAST 04-28 04:45
PROVIDERS: ADMIT Family Medicine; ATTEND Family Medicine
PROC: 05HC33Z Insertion of Infusion Device into Left Basilic Vein, Percutaneous Approach (ICD-10-PCS; 2020-04-28)
PROC: B54NZZA Ultrasonography of Left Upper Extremity Veins, Guidance (ICD-10-PCS; 2020-04-28)
PROC: 0JH63XZ Insertion of Tunneled Vascular Access Device into Chest Subcutaneous Tissue and Fascia, Percutaneous Approach (ICD-10-PCS; principal; 2020-05-01)
PROC: 02H633Z Insertion of Infusion Device into Right Atrium, Percutaneous Approach (ICD-10-PCS; 2020-05-01)
PROC: B548ZZA Ultrasonography of Superior Vena Cava, Guidance (ICD-10-PCS; 2020-05-01)
PROC: B518YZA Fluoroscopy of Superior Vena Cava using Other Contrast, Guidance (ICD-10-PCS; 2020-05-01)
PROC: B513YZZ Fluoroscopy of Right Jugular Veins using Other Contrast (ICD-10-PCS; 2020-05-01)
PROC: 5A1D70Z Performance of Urinary Filtration, Intermittent, Less than 6 Hours Per Day (ICD-10-PCS; 2020-05-02)
PROC: 30233N1 Transfusion of Nonautologous Red Blood Cells into Peripheral Vein, Percutaneous Approach (ICD-10-PCS; 2020-05-03)
PROC: 30233N1 Transfusion of Nonautologous Red Blood Cells into Peripheral Vein, Percutaneous Approach (ICD-10-PCS; 2020-05-03)
PROC: 05HC33Z Insertion of Infusion Device into Left Basilic Vein, Percutaneous Approach (ICD-10-PCS; 2020-05-05)
PROC: B54NZZA Ultrasonography of Left Upper Extremity Veins, Guidance (ICD-10-PCS; 2020-05-05)
PROC: 5A1D70Z Performance of Urinary Filtration, Intermittent, Less than 6 Hours Per Day (ICD-10-PCS; 2020-05-07)
PROC: 5A1D70Z Performance of Urinary Filtration, Intermittent, Less than 6 Hours Per Day (ICD-10-PCS; 2020-05-08)
PROC: 5A1D70Z Performance of Urinary Filtration, Intermittent, Less than 6 Hours Per Day (ICD-10-PCS; 2020-05-09)
DX: T82.41XA Breakdown (mechanical) of vascular dialysis catheter, initial encounter (principal); A41.89 Other specified sepsis; U07.1 COVID-19; J12.82 Pneumonia due to coronavirus disease 2019; N18.6 End stage renal disease; J96.21 Acute and chronic respiratory failure with hypoxia; G93.41 Metabolic encephalopathy; G93.49 Other encephalopathy; G93.1 Anoxic brain damage, not elsewhere classified; I13.2 Hypertensive heart and chronic kidney disease with heart failure and with stage 5 chronic kidney disease, or end stage renal disease; I82.411 Acute embolism and thrombosis of right femoral vein; I50.30 Unspecified diastolic (congestive) heart failure; I16.9 Hypertensive crisis, unspecified; E87.0 Hyperosmolality and hypernatremia; Z68.44 Body mass index [BMI] 60.0-69.9, adult; Z99.2 Dependence on renal dialysis; E66.01 Morbid (severe) obesity due to excess calories; E87.5 Hyperkalemia; D64.9 Anemia, unspecified; E11.22 Type 2 diabetes mellitus with diabetic chronic kidney disease; F03.90 Unspecified dementia, unspecified severity, without behavioral disturbance, psychotic disturbance, mood disturbance, and anxiety; F17.200 Nicotine dependence, unspecified, uncomplicated; F79 Unspecified intellectual disabilities; J45.909 Unspecified asthma, uncomplicated; Y71.2 Prosthetic and other implants, materials and accessory cardiovascular devices associated with adverse incidents; M54.5 Low back pain; G89.29 Other chronic pain; Y92.89 Other specified places as the place of occurrence of the external cause; Z91.19 Patient's noncompliance with other medical treatment and regimen; Z91.15 Patient's noncompliance with renal dialysis; Z83.3 Family history of diabetes mellitus; Z82.49 Family history of ischemic heart disease and other diseases of the circulatory system
CPT/HCPCS: 36415; 36561; 36600; 70450; 71045; 71250; 73501; 75820; 76536; 76942; 77001; 80048; 80053; 80202; 82306; 82607; 82728; 82746; 82805; 82962; 83036; 83540; 83550; 83605; 83615; 83735; 83880; 84100; 84443; 84484; 85007; 85025; 85027; 85379; 85610; 85730; 86141; 86850; 86900; 86901; 86920; 87040; 87070; 87081; 87205; 87340; 87426; 90935; 93005; 93970; 94640; 96365; 96366; 96367; 97110; 97530; 99152; 99153; C9113; G0378; J0696; J0885; J1100; J1642; J2185; J2250; J2405; J7042; J7060

== ENCOUNTER 2020-07-16 16:58 | Inpatient (IN) | payer MEDICARE, MEDICAID ==
[~2020-07-16] VITALS: Ht 160 cm; Wt 131.0 kg
[2020-07-16 19:18] LABS: Basophils # (auto) 0 10 ^3/uL (0-0.2); Basophils % (auto) 0.6 % (0.0-2.0); Eosinophils # (auto) 0.1 10 ^3/uL (0-0.8); Eosinophils % (auto) 1.5 % (0.0-7.0); Hematocrit 30.4 % (36.0-46.0); Hemoglobin 10.1 g/dL (12.2-16.2); Lymphocytes # (auto) 1.1 10 ^3/uL (0.4-5.4); Lymphocytes % (auto) 22.3 % (10.0-50.0); Mean Corpuscular Hemoglobin 32.2 pg (28.0-32.0); Mean Corpuscular Hgb Conc. 33.1 g/dL (32.0-36.0); Mean Corpuscular Volume 97.2 fL (80.0-100.0); Monocytes # (auto) 0.3 10 ^3/uL (0-1.3); Monocytes % (auto) 6.9 % (0.0-12.0); Neutrophils # (auto) 3.4 10 ^3/uL (1.6-8.6); Neutrophils % (auto) 68.7 % (37.0-80.0); Nucleated Red Blood Cells % 0.1 %; Platelet Count (auto) 169 10^3/uL (140-450); Red Blood Cells 3.12 10^6/uL (4.0-5.20)
[2020-07-16 19:33] LABS: Albumin 3.1 g/dL (3.4-5.0); BUN/Creatinine Ratio 2.9; Calcium 8.6 mg/dL (8.5-10.1); Potassium 3.6 mmol/L (3.5-5.1)
[2020-07-16 19:36] LABS: Bilirubin, Total 0.3 mg/dL (0.2-1.0); Total Protein 7.3 g/dL (6.4-8.2)
[2020-07-16 19:40] LABS: INR 1.01 (0.9-1.15)
[2020-07-16] MEDS ORDERED: ACETAMINOPHEN 325 MG TAB PO PRN (21:15)
[2020-07-16] MEDS ORDERED: MORPHINE SULF INJ 2 MG/ML SYRINGE 1ML IV PRN (21:15)
[2020-07-16] MEDS ORDERED: ONDANSETRON HCL 4 MG/2 ML VIAL IV PRN (21:15)
[2020-07-16] MEDS ORDERED: TEMAZEPAM 15 MG CAP PO PRN (21:15)
[2020-07-16] MEDS ORDERED: NITROGLYCERIN 0.4 MG SL TAB SL PRN (21:15)
[2020-07-16] MEDS: cloNIDine HCL 0.1 MG TAB PO SCH (22:00)
[2020-07-16 22:52] VITALS: BP 101/53
[2020-07-16] MEDS: FAMOTIDINE 20 MG TAB PO SCH (23:18)
[2020-07-17] VITALS (7 sets, daily range): BP systolic 101–118; BP diastolic 53–71
[2020-07-17] MEDS ORDERED: MIDO5TAB2 PO (03:45)
[2020-07-17] MEDS ORDERED: DIPH25CA66 PO (03:45)
[2020-07-17] MEDS ORDERED: APIX5TAB PO (03:45)
[2020-07-17] MEDS ORDERED: SODI10PA PO ×2 (03:45)
[2020-07-17] MEDS ORDERED: OMEP20TA PO (03:45)
[2020-07-17 05:30] LABS: Basophils # (auto) 0 10 ^3/uL (0-0.2); Basophils % (auto) 0.6 % (0.0-2.0); Eosinophils # (auto) 0.1 10 ^3/uL (0-0.8); Eosinophils % (auto) 1.7 % (0.0-7.0); Hematocrit 25.4 % (36.0-46.0); Hemoglobin 8.6 g/dL (12.2-16.2); Lymphocytes # (auto) 1.1 10 ^3/uL (0.4-5.4); Lymphocytes % (auto) 27.5 % (10.0-50.0); Mean Corpuscular Hemoglobin 32.9 pg (28.0-32.0); Mean Corpuscular Hgb Conc. 33.8 g/dL (32.0-36.0); Mean Corpuscular Volume 97.4 fL (80.0-100.0); Monocytes # (auto) 0.4 10 ^3/uL (0-1.3); Monocytes % (auto) 10.7 % (0.0-12.0); Neutrophils # (auto) 2.3 10 ^3/uL (1.6-8.6); Neutrophils % (auto) 59.5 % (37.0-80.0); Nucleated Red Blood Cells % 0.1 %; Platelet Count (auto) 152 10^3/uL (140-450); Red Blood Cells 2.61 10^6/uL (4.0-5.20); Red Cell Distribution Width 18.1 % (11.8-14.3); White Blood Cell 3.9 10^3/uL (4.4-10.8)
[2020-07-17 05:47] LABS: BUN/Creatinine Ratio 3.3; Calcium 8.6 mg/dL (8.5-10.1); Potassium 4.1 mmol/L (3.5-5.1)
[2020-07-17] MEDS: cloNIDine HCL 0.1 MG TAB PO SCH ×2 (06:00→22:00)
[2020-07-17] MEDS ORDERED: FUROSEMIDE 20 MG TAB PO SCH (06:00)
[2020-07-17] MEDS ORDERED: CALCIUM ACETATE 667 MG CAP PO SCH (08:00)
[2020-07-17] MEDS ORDERED: PANTOPRAZOLE 40 MG TAB PO SCH (10:00)
[2020-07-17] MEDS: SEVELAMER 800 MG TAB PO SCH ×3 (11:40→18:00)
[2020-07-18 05:21] LABS: Hematocrit 27.4 % (36.0-46.0); Hemoglobin 8.9 g/dL (12.2-16.2)
[2020-07-18 06:06] VITALS: BP 110/49
[2020-07-18] MEDS: SEVELAMER 800 MG TAB PO SCH ×3 (08:00→18:00)
[2020-07-18 09:00] VITALS: BP 122/65
[2020-07-18] MEDS: FAMOTIDINE 20 MG TAB PO SCH (10:00)
[2020-07-18] MEDS: cloNIDine HCL 0.1 MG TAB PO SCH (10:00)
[2020-07-18 13:00] VITALS: BP 121/69
[2020-07-18] MEDS ORDERED: cloNIDine HCL 0.1 MG TAB PO PRN (16:30)
[2020-07-18 16:51] VITALS: BP 135/73
[2020-07-18 22:00] VITALS: BP 139/75
[2020-07-19 05:50] VITALS: BP 127/74
[2020-07-19 06:54] LABS: Basophils # (auto) 0 10 ^3/uL (0-0.2); Basophils % (auto) 0.5 % (0.0-2.0); Eosinophils # (auto) 0.1 10 ^3/uL (0-0.8); Hematocrit 27.4 % (36.0-46.0); Hemoglobin 9.2 g/dL (12.2-16.2); Lymphocytes # (auto) 1.1 10 ^3/uL (0.4-5.4); Lymphocytes % (auto) 19.6 % (10.0-50.0); Mean Corpuscular Hemoglobin 32.6 pg (28.0-32.0); Mean Corpuscular Hgb Conc. 33.5 g/dL (32.0-36.0); Mean Corpuscular Volume 97.3 fL (80.0-100.0); Monocytes # (auto) 0.5 10 ^3/uL (0-1.3); Monocytes % (auto) 9.1 % (0.0-12.0); Neutrophils # (auto) 3.8 10 ^3/uL (1.6-8.6); Neutrophils % (auto) 68.8 % (37.0-80.0); Nucleated Red Blood Cells % 0.1 %; Platelet Count (auto) 191 10^3/uL (140-450); Red Blood Cells 2.82 10^6/uL (4.0-5.20); Red Cell Distribution Width 17.3 % (11.8-14.3); White Blood Cell 5.5 10^3/uL (4.4-10.8)
[2020-07-19 06:57] LABS: Potassium 4.4 mmol/L (3.5-5.1)
[2020-07-19] MEDS ORDERED: SODIUM CHL 0.9% 1000 ML BAG XX ONE (07:00)
[2020-07-19 07:04] LABS: BUN/Creatinine Ratio 4.5; Calcium 8.9 mg/dL (8.5-10.1)
[2020-07-19 09:00] VITALS: BP 130/75
[2020-07-19] MEDS: SEVELAMER 800 MG TAB PO SCH ×3 (09:48→17:44)
[2020-07-19 13:00] VITALS: BP 114/65
[2020-07-19 17:00] VITALS: BP 150/72
[2020-07-19] MEDS ORDERED: EPOETIN ALFA-EPBX 10,000 UNIT/1ML VIAL SC ONE (21:00)
[2020-07-19 22:00] VITALS: BP 105/57
[2020-07-20 05:00] VITALS: BP 96/57
[2020-07-20] MEDS: HYDROcodone-ACET 5/325MG TAB PO PRN ×2 (05:16→19:54)
[2020-07-20 06:15] LABS: Basophils # (auto) 0 10 ^3/uL (0-0.2); Basophils % (auto) 0.5 % (0.0-2.0); Eosinophils # (auto) 0.1 10 ^3/uL (0-0.8); Eosinophils % (auto) 2.3 % (0.0-7.0); Hematocrit 27.7 % (36.0-46.0); Hemoglobin 9.3 g/dL (12.2-16.2); Lymphocytes # (auto) 1.3 10 ^3/uL (0.4-5.4); Mean Corpuscular Hemoglobin 32.3 pg (28.0-32.0); Mean Corpuscular Hgb Conc. 33.5 g/dL (32.0-36.0); Mean Corpuscular Volume 96.4 fL (80.0-100.0); Monocytes # (auto) 0.5 10 ^3/uL (0-1.3); Monocytes % (auto) 8.1 % (0.0-12.0); Neutrophils # (auto) 4.3 10 ^3/uL (1.6-8.6); Neutrophils % (auto) 69.1 % (37.0-80.0); Platelet Count (auto) 211 10^3/uL (140-450); Red Blood Cells 2.88 10^6/uL (4.0-5.20); Red Cell Distribution Width 17.2 % (11.8-14.3); White Blood Cell 6.3 10^3/uL (4.4-10.8)
[2020-07-20 06:25] LABS: BUN/Creatinine Ratio 5.1; Calcium 8.8 mg/dL (8.5-10.1); Potassium 5.2 mmol/L (3.5-5.1)
[2020-07-20 06:34] LABS: Partial Thromboplastin Time 28.2 sec (23.0-31.2)
[2020-07-20 08:00] VITALS: BP 94/57
[2020-07-20] MEDS: SEVELAMER 800 MG TAB PO SCH ×3 (08:00→18:34)
[2020-07-20] MEDS: FAMOTIDINE 20 MG TAB PO SCH (10:00)
[2020-07-20] MEDS ORDERED: BUPIVACAINE 0.25% INJ 50ML VIAL ONE (11:49)
[2020-07-20] MEDS ORDERED: ceFAZolin 1GM/50ML 100 ML IV ONE (11:51)
[2020-07-20 12:00] VITALS: BP 106/68
[2020-07-20] MEDS ORDERED: fentaNYL CITRATE 100 MCG/2 ML VL ONE (12:09)
[2020-07-20] MEDS ORDERED: ONDANSETRON HCL 4 MG/2 ML VIAL ONE (13:12)
[2020-07-20] MEDS ORDERED: ONDANSETRON HCL 4 MG/2 ML VIAL IV PRN (13:45)
[2020-07-20] MEDS ORDERED: PROPOFOL 10 MG/ML 20 ML IV ONE (13:48)
[2020-07-20] MEDS ORDERED: KETAMINE HCL 10 ML ONE (13:50)
[2020-07-20] MEDS ORDERED: MORPHINE SULF INJ 2 MG/ML SYRINGE 1ML IV ONE (14:30)
[2020-07-20 14:38] VITALS: BP 156/89
[2020-07-20 16:00] VITALS: BP 92/58
[2020-07-20] MEDS ORDERED: EPOETIN ALFA-EPBX 10,000 UNIT/1ML VIAL SC ONE (21:30)
[2020-07-20 22:00] VITALS: BP 122/70
[2020-07-21 05:00] VITALS: BP 124/59
[2020-07-21 05:31] LABS: Basophils # (auto) 0 10 ^3/uL (0-0.2); Basophils % (auto) 0.5 % (0.0-2.0); Eosinophils # (auto) 0.1 10 ^3/uL (0-0.8); Hematocrit 26.8 % (36.0-46.0); Lymphocytes % (auto) 17.3 % (10.0-50.0); Mean Corpuscular Hemoglobin 32.9 pg (28.0-32.0); Mean Corpuscular Hgb Conc. 33.7 g/dL (32.0-36.0); Mean Corpuscular Volume 97.6 fL (80.0-100.0); Monocytes # (auto) 0.5 10 ^3/uL (0-1.3); Monocytes % (auto) 9.3 % (0.0-12.0); Neutrophils # (auto) 4.2 10 ^3/uL (1.6-8.6); Neutrophils % (auto) 70.9 % (37.0-80.0); Platelet Count (auto) 173 10^3/uL (140-450); Red Blood Cells 2.75 10^6/uL (4.0-5.20); Red Cell Distribution Width 17.5 % (11.8-14.3); White Blood Cell 5.9 10^3/uL (4.4-10.8)
[2020-07-21 05:47] LABS: BUN/Creatinine Ratio 4.3; Calcium 8.7 mg/dL (8.5-10.1); Potassium 4.6 mmol/L (3.5-5.1)
[2020-07-21 08:18] VITALS: BP 124/59
[2020-07-21 08:33] VITALS: BP 102/66
[2020-07-21] MEDS: SEVELAMER 800 MG TAB PO SCH (08:41)
== END 2020-07-21 11:03 | disposition home or self-care (01) | DRG 673 ==
LOC: EDBD 16:58 → EDUNIT# 16:58 → ER 16:58 → TELE 21:04 → TELE-CENTR 22:52
PROVIDERS: ADMIT Nurse Practitioner; ATTEND Internal Medicine
PROC: 05HF33Z Insertion of Infusion Device into Left Cephalic Vein, Percutaneous Approach (ICD-10-PCS; 2020-07-16)
PROC: B54NZZA Ultrasonography of Left Upper Extremity Veins, Guidance (ICD-10-PCS; 2020-07-16)
PROC: 02HV33Z Insertion of Infusion Device into Superior Vena Cava, Percutaneous Approach (ICD-10-PCS; 2020-07-20)
PROC: B5181ZA Fluoroscopy of Superior Vena Cava using Low Osmolar Contrast, Guidance (ICD-10-PCS; 2020-07-20)
PROC: 5A1D70Z Performance of Urinary Filtration, Intermittent, Less than 6 Hours Per Day (ICD-10-PCS; 2020-07-20)
PROC: 0JH63XZ Insertion of Tunneled Vascular Access Device into Chest Subcutaneous Tissue and Fascia, Percutaneous Approach (ICD-10-PCS; principal; 2020-07-20 12:07)
DX: T82.42XA Displacement of vascular dialysis catheter, initial encounter (principal); N18.6 End stage renal disease; I13.2 Hypertensive heart and chronic kidney disease with heart failure and with stage 5 chronic kidney disease, or end stage renal disease; E44.1 Mild protein-calorie malnutrition; Z68.45 Body mass index [BMI] 70 or greater, adult; T82.838A Hemorrhage due to vascular prosthetic devices, implants and grafts, initial encounter; D63.1 Anemia in chronic kidney disease; E66.01 Morbid (severe) obesity due to excess calories; F03.90 Unspecified dementia, unspecified severity, without behavioral disturbance, psychotic disturbance, mood disturbance, and anxiety; Z20.822 Contact with and (suspected) exposure to COVID-19; I50.9 Heart failure, unspecified; Y71.2 Prosthetic and other implants, materials and accessory cardiovascular devices associated with adverse incidents; Z82.49 Family history of ischemic heart disease and other diseases of the circulatory system; Z86.16 Personal history of COVID-19; Z87.01 Personal history of pneumonia (recurrent); Z87.898 Personal history of other specified conditions; Z91.19 Patient's noncompliance with other medical treatment and regimen; Z99.2 Dependence on renal dialysis; Y92.89 Other specified places as the place of occurrence of the external cause
CPT/HCPCS: 36415; 71045; 76000; 76881; 80048; 80053; 85014; 85018; 85025; 85610; 85730; 86850; 86900; 86901; 87081; 87426; 93970; G0378; J0690; J1642; J2405; J2704; J3490

== ENCOUNTER 2020-09-07 23:59 | Emergency (ER) | payer MEDICARE, MEDICAID ==
[~2020-09-07] VITALS: Ht 172.7 cm; Wt 136.1 kg
[~2020-09-07 23:59] MED LIST changes: +APIX5TAB PO; -CEPH500C PO; -CLON0.2D6 TD; +DIPH25CA66 PO; +MIDO5TAB2 PO; +OMEP20TA PO; +SODI10PA PO
[2020-09-08] MEDS ORDERED: fentaNYL CITRATE 100 MCG/2 ML VL IV ONE (00:30)
[2020-09-08 01:12] LABS: Basophils # (auto) 0 10 ^3/uL (0-0.2); Basophils % (auto) 0.3 % (0.0-2.0); Eosinophils # (auto) 0.1 10 ^3/uL (0-0.8); Hemoglobin 8.5 g/dL (12.2-16.2); Lymphocytes # (auto) 1.1 10 ^3/uL (0.4-5.4); Lymphocytes % (auto) 11.7 % (10.0-50.0); Mean Corpuscular Hemoglobin 31.7 pg (28.0-32.0); Mean Corpuscular Hgb Conc. 32.7 g/dL (32.0-36.0); Monocytes # (auto) 0.9 10 ^3/uL (0-1.3); Monocytes % (auto) 8.9 % (0.0-12.0); Neutrophils # (auto) 7.5 10 ^3/uL (1.6-8.6); Neutrophils % (auto) 78.1 % (37.0-80.0); Platelet Count (auto) 170 10^3/uL (140-450); Red Blood Cells 2.68 10^6/uL (4.0-5.20); Red Cell Distribution Width 15.3 % (11.8-14.3); White Blood Cell 9.6 10^3/uL (4.4-10.8)
[2020-09-08 01:35] LABS: Albumin 3.1 g/dL (3.4-5.0); BUN/Creatinine Ratio 4.6; Potassium 4.2 mmol/L (3.5-5.1)
[2020-09-08 01:38] LABS: Bilirubin, Total 0.3 mg/dL (0.2-1.0); Total Protein 7.2 g/dL (6.4-8.2)
[2020-09-08] MEDS ORDERED: ONDANSETRON HCL 4 MG/2 ML VIAL IV ONE ×2 (02:45→08:00)
[2020-09-08] MEDS ORDERED: HYDROmorphone HCL 2 MG/ML VL IV ONE ×2 (02:45→08:00)
[2020-09-08 07:50] VITALS: BP 93/47
[2020-09-08] MEDS ORDERED: ONDANSETRON HCL 4 MG/2 ML VIAL ONE (07:55)
[2020-09-08] MEDS ORDERED: HYDROmorphone HCL 2 MG/ML VL ONE (07:55)
== END 2020-09-08 09:14 | disposition short-term general hospital (02) ==
LOC: EDBD 23:59 → ER 23:59
DX: S72.452A Displaced supracondylar fracture without intracondylar extension of lower end of left femur, initial encounter for closed fracture (principal); I12.0 Hypertensive chronic kidney disease with stage 5 chronic kidney disease or end stage renal disease; E11.22 Type 2 diabetes mellitus with diabetic chronic kidney disease; N18.6 End stage renal disease; F03.90 Unspecified dementia, unspecified severity, without behavioral disturbance, psychotic disturbance, mood disturbance, and anxiety; E66.9 Obesity, unspecified; R51.9 Headache, unspecified; Z68.42 Body mass index [BMI] 45.0-49.9, adult; Z99.2 Dependence on renal dialysis; Z86.73 Personal history of transient ischemic attack (TIA), and cerebral infarction without residual deficits; Z79.899 Other long term (current) drug therapy; Z20.822 Contact with and (suspected) exposure to COVID-19; W18.39XA Other fall on same level, initial encounter; Y93.89 Activity, other specified; Y92.89 Other specified places as the place of occurrence of the external cause; Y99.8 Other external cause status
CPT/HCPCS: 36415; 70450; 73552; 73590; 80053; 85025; 85049; 87426; 96374; 96375; 96376; 99285; J1170; J2405; J3010

== ENCOUNTER → 2022-05-28 | Outpatient (CLI) | payer MEDICARE, MEDICAID ==
[~2022-05-28] MED LIST changes: -MIDO5TAB2 PO; +MIDO5TAB3 PO
[2022-05-28 07:54] LABS: Basophils # (auto) 0 10 ^3/uL (0-0.2); Basophils % (auto) 0.3 % (0.0-2.0); Eosinophils # (auto) 0.1 10 ^3/uL (0-0.8); Eosinophils % (auto) 1.2 % (0.0-7.0); Hematocrit 34.4 % (36.0-46.0); Hemoglobin 11.6 g/dL (12.2-16.2); Lymphocytes # (auto) 1.3 10 ^3/uL (0.4-5.4); Lymphocytes % (auto) 29.2 % (10.0-50.0); Mean Corpuscular Hemoglobin 32.9 pg (28.0-32.0); Mean Corpuscular Hgb Conc. 33.7 g/dL (32.0-36.0); Mean Corpuscular Volume 97.7 fL (80.0-100.0); Monocytes # (auto) 0.3 10 ^3/uL (0-1.3); Monocytes % (auto) 6.3 % (0.0-12.0); Neutrophils # (auto) 2.7 10 ^3/uL (1.6-8.6); Nucleated Red Blood Cells % 0.1 %; Red Blood Cells 3.52 10^6/uL (4.0-5.20); Red Cell Distribution Width 16.8 % (11.8-14.3); White Blood Cell 4.3 10^3/uL (4.4-10.8)
[2022-05-28 08:22] LABS: Cholesterol 190 mg/dL (< 200); HDL Cholesterol 85 mg/dL (40-59); LDL Cholesterol 84 mg/dL (< 100); Triglycerides 71 mg/dL (< 150)
== END | disposition home or self-care (01) ==
LOC: LAB 07:34
PROVIDERS: ATTEND Nurse Practitioner
DX: I10 Essential (primary) hypertension (principal); R73.9 Hyperglycemia, unspecified; E78.5 Hyperlipidemia, unspecified
CPT/HCPCS: 36415; 80061; 83036; 85025

== ENCOUNTER 2022-09-06 10:50 | Inpatient (IN) | payer MEDICARE, MEDICAID ==
[~2022-09-06] VITALS: Ht 167.6 cm; Wt 98.3 kg
[~2022-09-06 10:50] MED LIST changes: -MIDO5TAB3 PO; +MIDO5TAB4 PO
[2022-09-06 11:41] LABS: Albumin 2.7 g/dL (3.4-5.0); BUN/Creatinine Ratio 4.6 (10.0-20.0); Calcium 8.6 mg/dL (8.5-10.1)
[2022-09-06 11:43] LABS: Basophils # (auto) 0 10 ^3/uL (0-0.2); Basophils % (auto) 0.3 % (0.0-2.0); Eosinophils # (auto) 0 10 ^3/uL (0-0.8); Eosinophils % (auto) 0.7 % (0.0-7.0); Hematocrit 36.7 % (36.0-46.0); Hemoglobin 11.6 g/dL (12.2-16.2); Lymphocytes # (auto) 0.9 10 ^3/uL (0.4-5.4); Lymphocytes % (auto) 17.1 % (10.0-50.0); Mean Corpuscular Hemoglobin 31.2 pg (28.0-32.0); Mean Corpuscular Hgb Conc. 31.6 g/dL (32.0-36.0); Mean Corpuscular Volume 98.8 fL (80.0-100.0); Monocytes # (auto) 0.4 10 ^3/uL (0-1.3); Monocytes % (auto) 8.8 % (0.0-12.0); Neutrophils # (auto) 3.8 10 ^3/uL (1.6-8.6); Neutrophils % (auto) 73.1 % (37.0-80.0); Nucleated Red Blood Cells % 0.2 %; Red Blood Cells 3.71 10^6/uL (4.0-5.20); Red Cell Distribution Width 15.5 % (11.8-14.3); White Blood Cell 5.1 10^3/uL (4.4-10.8)
[2022-09-06 11:48] LABS: INR 1.04 (0.9-1.15); Partial Thromboplastin Time 28.5 SEC (24.5-34.5)
[2022-09-06 11:55] LABS: Bilirubin, Total 0.4 mg/dL (0.2-1.0); Total Protein 5.9 g/dL (6.4-8.2)
[2022-09-06] MEDS ORDERED: MIDODRINE HCL 10 MG TAB PO ONE ×2 (17:30→18:00)
[2022-09-06] MEDS ORDERED: ONDANSETRON HCL 4 MG/2 ML VIAL IV PRN (17:30)
[2022-09-06 17:51] VITALS: BP 132/65; PULSE 64; RESP 18; TEMP 98.6; O2SAT 93
[2022-09-06] MEDS ORDERED: ALBUTEROL SULF 2.5 MG/0.5ML(0.5%) NEB SOLN NEB PRN (18:00)
[2022-09-06] MEDS ORDERED: ALBUTEROL SULF 2.5 MG/0.5ML(0.5%) NEB SOLN NEB SCH (18:00)
[2022-09-06] MEDS: SEVELAMER 800 MG TAB PO SCH (19:50)
[2022-09-06 20:35] VITALS: PULSE 102; RESP 20; O2SAT 96
[2022-09-06] MEDS: APIXABAN 5 MG TAB PO SCH (22:43)
[2022-09-06] MEDS: MORPHINE SULFATE INJ 2 MG/ml SYRG IV PRN ×2 (22:43→23:21)
[2022-09-06 22:48] VITALS: O2SAT 93
[2022-09-07] MEDS: MORPHINE SULFATE INJ 2 MG/ml SYRG IV PRN ×2 (04:49→12:41)
[2022-09-07] MEDS ORDERED: SODIUM CHL 0.9% 1000 ML BAG XX ONE (07:00)
[2022-09-07 07:27] LABS: Basophils # (auto) 0 10 ^3/uL (0-0.2); Basophils % (auto) 0.4 % (0.0-2.0); Eosinophils # (auto) 0.1 10 ^3/uL (0-0.8); Eosinophils % (auto) 0.9 % (0.0-7.0); Hematocrit 35.2 % (36.0-46.0); Hemoglobin 11.4 g/dL (12.2-16.2); Lymphocytes # (auto) 0.7 10 ^3/uL (0.4-5.4); Lymphocytes % (auto) 11.5 % (10.0-50.0); Mean Corpuscular Hgb Conc. 32.4 g/dL (32.0-36.0); Mean Corpuscular Volume 98.8 fL (80.0-100.0); Monocytes # (auto) 0.6 10 ^3/uL (0-1.3); Monocytes % (auto) 9.4 % (0.0-12.0); Neutrophils # (auto) 4.6 10 ^3/uL (1.6-8.6); Neutrophils % (auto) 77.8 % (37.0-80.0); Nucleated Red Blood Cells % 0.1 %; Red Blood Cells 3.56 10^6/uL (4.0-5.20); Red Cell Distribution Width 15.7 % (11.8-14.3); White Blood Cell 5.9 10^3/uL (4.4-10.8)
[2022-09-07 07:50] LABS: Albumin 2.5 g/dL (3.4-5.0); BUN/Creatinine Ratio 5.2 (10.0-20.0); Calcium 8.4 mg/dL (8.5-10.1); Potassium 5.2 mmol/L (3.5-5.1)
[2022-09-07 08:05] LABS: Bilirubin, Total 0.3 mg/dL (0.2-1.0); Phosphorus 4.1 mg/dL (2.5-4.90); Total Protein 6.2 g/dL (6.4-8.2)
[2022-09-07 09:15] VITALS: O2SAT 92
[2022-09-07] MEDS: SEVELAMER 800 MG TAB PO SCH ×3 (09:53→17:30)
[2022-09-07] MEDS ORDERED: ALBUMIN 25% 100 ML IV ONE (10:30)
[2022-09-07 12:00] VITALS: PULSE 78; RESP 18; O2SAT 98
[2022-09-07] MEDS: APIXABAN 5 MG TAB PO SCH (12:42)
[2022-09-07] MEDS: PANTOPRAZOLE 40 MG TAB PO SCH (12:42)
[2022-09-07 20:00] VITALS: PULSE 94; O2SAT 97
[2022-09-07 22:00] VITALS: O2SAT 92
[2022-09-07] MEDS ORDERED: ALBUMIN 25% 50 ML IV ONE ×2 (22:48→23:00)
[2022-09-07] MEDS ORDERED: SODIUM CHLORIDE 0.9% 500 ML IV ONE (23:00)
[2022-09-08] VITALS (72 sets, daily range): BP systolic 86–146; BP diastolic 52–110; PULSE 77–102; RESP 7–24; TEMP 97.7–98.1; O2SAT 89–100
[2022-09-08] MEDS: APIXABAN 5 MG TAB PO SCH ×3 (01:05→22:00)
[2022-09-08] MEDS ORDERED: MIDODRINE HCL 10 MG TAB PO ONE (01:45)
[2022-09-08] MEDS ORDERED: NOREPINEPHRINE 8 MG/250ML KIT 250 ML IV ONE (06:38)
[2022-09-08] MEDS: NOREPINEPHRINE 8 MG/250ML KIT 250 ML IV SCH (07:30)
[2022-09-08] MEDS: SEVELAMER 800 MG TAB PO SCH ×3 (08:00→18:00)
[2022-09-08 08:46] LABS: Basophils # (auto) 0 10 ^3/uL (0-0.2); Basophils % (auto) 0.5 % (0.0-2.0); Eosinophils # (auto) 0.1 10 ^3/uL (0-0.8); Eosinophils % (auto) 1.2 % (0.0-7.0); Hematocrit 34.9 % (36.0-46.0); Hemoglobin 11.1 g/dL (12.2-16.2); Lymphocytes # (auto) 0.9 10 ^3/uL (0.4-5.4); Lymphocytes % (auto) 12.7 % (10.0-50.0); Mean Corpuscular Hemoglobin 31.9 pg (28.0-32.0); Mean Corpuscular Hgb Conc. 31.7 g/dL (32.0-36.0); Mean Corpuscular Volume 100.5 fL (80.0-100.0); Monocytes # (auto) 0.5 10 ^3/uL (0-1.3); Monocytes % (auto) 7.8 % (0.0-12.0); Neutrophils # (auto) 5.4 10 ^3/uL (1.6-8.6); Neutrophils % (auto) 77.8 % (37.0-80.0); Nucleated Red Blood Cells % 0.5 %; Red Blood Cells 3.47 10^6/uL (4.0-5.20); Red Cell Distribution Width 15.9 % (11.8-14.3); White Blood Cell 6.9 10^3/uL (4.4-10.8)
[2022-09-08 09:01] LABS: INR 1.26 (0.9-1.15); Partial Thromboplastin Time 38.1 SEC (24.5-34.5)
[2022-09-08 09:10] LABS: Albumin 2.9 g/dL (3.4-5.0); Calcium 8.8 mg/dL (8.5-10.1); Potassium 5.2 mmol/L (3.5-5.1)
[2022-09-08 09:24] LABS: BUN/Creatinine Ratio 4.4 (10.0-20.0); Bilirubin, Total 0.4 mg/dL (0.2-1.0); Total Protein 6.4 g/dL (6.4-8.2)
[2022-09-08] MEDS: PANTOPRAZOLE 40 MG TAB PO SCH (10:00)
[2022-09-08 12:20] LABS: Hepatitis A Ab IgM Negative; Hepatitis B Core IgM Negative
[2022-09-08 12:24] LABS: Hepatitis C Antibody Negative (Negative)
[2022-09-08] MEDS ORDERED: DOCU-94 PO (14:07)
[2022-09-08] MEDS ORDERED: CETI-176 PO (14:09)
[2022-09-08] MEDS ORDERED: CLON0.1T PO (14:09)
[2022-09-09] VITALS (23 sets, daily range): BP systolic 103–155; BP diastolic 52–102; PULSE 82–111; RESP 9–20; TEMP 97.9–98.2; O2SAT 92–100
[2022-09-09 04:09] LABS: Basophils # (auto) 0.1 10 ^3/uL (0-0.2); Basophils % (auto) 1.3 % (0.0-2.0); Eosinophils # (auto) 0 10 ^3/uL (0-0.8); Eosinophils % (auto) 0.3 % (0.0-7.0); Hematocrit 36.3 % (36.0-46.0); Hemoglobin 11.6 g/dL (12.2-16.2); Lymphocytes % (auto) 14.8 % (10.0-50.0); Mean Corpuscular Hemoglobin 32.1 pg (28.0-32.0); Mean Corpuscular Hgb Conc. 31.9 g/dL (32.0-36.0); Mean Corpuscular Volume 100.6 fL (80.0-100.0); Monocytes # (auto) 0.5 10 ^3/uL (0-1.3); Monocytes % (auto) 8.3 % (0.0-12.0); Neutrophils # (auto) 4.9 10 ^3/uL (1.6-8.6); Neutrophils % (auto) 75.3 % (37.0-80.0); Nucleated Red Blood Cells % 0.1 %; Red Blood Cells 3.61 10^6/uL (4.0-5.20); Red Cell Distribution Width 16.4 % (11.8-14.3); White Blood Cell 6.5 10^3/uL (4.4-10.8)
[2022-09-09 06:43] LABS: Potassium 5.1 mmol/L (3.5-5.1)
[2022-09-09] MEDS: NOREPINEPHRINE 8 MG/250ML KIT 250 ML IV SCH (07:00)
[2022-09-09 07:04] LABS: Albumin 2.5 g/dL (3.4-5.0); BUN/Creatinine Ratio 5.2 (10.0-20.0); Bilirubin, Total 0.4 mg/dL (0.2-1.0); Calcium 9.2 mg/dL (8.5-10.1); Total Protein 5.7 g/dL (6.4-8.2)
[2022-09-09] MEDS ORDERED: HYDROcodone-ACET 5/325MG TAB PO PRN (09:15)
[2022-09-09] MEDS: APIXABAN 5 MG TAB PO SCH ×2 (09:22→21:57)
[2022-09-09] MEDS: PANTOPRAZOLE 40 MG/10 ML VIAL INJ IV SCH (09:22)
[2022-09-09] MEDS: SEVELAMER 800 MG TAB PO SCH ×3 (09:22→18:00)
[2022-09-09] MEDS: MUPIROCIN 2% OINT 15gm or 22gm FOR MRSA NARES EACHNOSTRI SCH ×2 (09:25→21:56)
[2022-09-09] MEDS ORDERED: MORPHINE SULFATE INJ 2 MG/ml SYRG IV PRN (16:30)
[2022-09-09] MEDS: DOCUSATE SOD 100 MG CAP PO PRN (21:56)
[2022-09-10] VITALS (10 sets, daily range): BP systolic 101–143; BP diastolic 54–76; PULSE 84–113; RESP 17–19; TEMP 98–98.7; O2SAT 91–100
[2022-09-10] MEDS: APIXABAN 5 MG TAB PO SCH (08:33)
[2022-09-10] MEDS: SEVELAMER 800 MG TAB PO SCH ×4 (08:33→22:17)
[2022-09-10] MEDS: PANTOPRAZOLE 40 MG/10 ML VIAL INJ IV SCH (08:33)
[2022-09-10] MEDS: MUPIROCIN 2% OINT 15gm or 22gm FOR MRSA NARES EACHNOSTRI SCH (08:34)
[2022-09-10] MEDS: ACETAMINOPHEN/CODEINE#3 (300/30mg) TAB PO PRN ×2 (15:34→22:17)
[2022-09-10] MEDS ORDERED: SODIUM CHL 0.9% 1000 ML BAG XX ONE (15:45)
[2022-09-11] MEDS: APIXABAN 5 MG TAB PO SCH ×2 (00:55→08:10)
[2022-09-11] MEDS: DOCUSATE SOD 100 MG CAP PO PRN (00:55)
[2022-09-11] MEDS: MUPIROCIN 2% OINT 15gm or 22gm FOR MRSA NARES EACHNOSTRI SCH ×2 (00:55→08:11)
[2022-09-11 05:00] VITALS: BP 116/56; PULSE 101; RESP 18; TEMP 98.4; O2SAT 97
[2022-09-11 08:00] VITALS: PULSE 98
[2022-09-11] MEDS: SEVELAMER 800 MG TAB PO SCH (08:10)
[2022-09-11] MEDS: PANTOPRAZOLE 40 MG/10 ML VIAL INJ IV SCH (08:10)
[2022-09-11] MEDS: ACETAMINOPHEN/CODEINE#3 (300/30mg) TAB PO PRN (08:10)
[2022-09-11 08:30] VITALS: RESP 18; O2SAT 98
[2022-09-11 09:00] VITALS: BP 149/71; PULSE 101; RESP 20; TEMP 97.9; O2SAT 100
[2022-09-11 10:30] VITALS: O2SAT 98
[2022-09-11] MEDS ORDERED: LACTULOSE 20Gm/30ML SOLN PO ONE (12:15)
[2022-09-11] MEDS ORDERED: DOCUSATE SOD 100 MG CAP PO ONE (12:45)
[2022-09-11 13:00] VITALS: BP 138/66; PULSE 108; RESP 24; TEMP 97.8; O2SAT 93
== END 2022-09-11 14:00 | DRG 555 ==
LOC: ER 10:50 → EDBD 10:50 → OVERFLOW 17:27 → WEST WING 09-07 17:10 → ICU WEST 09-08 06:29 → TELE-CENTR 09-09 22:20
PROVIDERS: ADMIT Family Medicine; ATTEND Family Medicine
PROC: 5A1D70Z Performance of Urinary Filtration, Intermittent, Less than 6 Hours Per Day (ICD-10-PCS; 2022-09-07)
PROC: 05HA33Z Insertion of Infusion Device into Left Brachial Vein, Percutaneous Approach (ICD-10-PCS; principal; 2022-09-08)
PROC: B54NZZA Ultrasonography of Left Upper Extremity Veins, Guidance (ICD-10-PCS; 2022-09-08)
PROC: 5A1D70Z Performance of Urinary Filtration, Intermittent, Less than 6 Hours Per Day (ICD-10-PCS; 2022-09-10)
DX: M79.661 Pain in right lower leg (principal); N18.6 End stage renal disease; E44.0 Moderate protein-calorie malnutrition; I13.2 Hypertensive heart and chronic kidney disease with heart failure and with stage 5 chronic kidney disease, or end stage renal disease; I95.1 Orthostatic hypotension; D63.8 Anemia in other chronic diseases classified elsewhere; E66.01 Morbid (severe) obesity due to excess calories; E87.5 Hyperkalemia; K21.9 Gastro-esophageal reflux disease without esophagitis; E11.22 Type 2 diabetes mellitus with diabetic chronic kidney disease; I50.9 Heart failure, unspecified; J44.9 Chronic obstructive pulmonary disease, unspecified; F03.C0 Unspecified dementia, severe, without behavioral disturbance, psychotic disturbance, mood disturbance, and anxiety; K80.20 Calculus of gallbladder without cholecystitis without obstruction; Z99.2 Dependence on renal dialysis; Z74.01 Bed confinement status; Z68.34 Body mass index [BMI] 34.0-34.9, adult; Z82.49 Family history of ischemic heart disease and other diseases of the circulatory system
CPT/HCPCS: 36415; 36600; 70450; 71045; 74018; 76705; 80053; 80074; 82805; 82962; 83880; 83970; 84100; 84484; 85025; 85610; 85730; 87081; 87426; 90935; 93005; 93926; 93970; 96365; 96375; C9113; G0378; J2405; P9047